=== PATIENT | female | born 1950 | race Caucasian/White ===

== ENCOUNTER 2020-06-28 01:10 | Outpatient (CLI) | payer OTHER, SELFPAY ==
[2020-06-28 17:58] LABS: SARS-CoV-2 RNA PCR Negative
== END 2020-06-28 01:11 | disposition home or self-care (01) ==
LOC: ANHCOVIDDT 01:10
PROVIDERS: PCP Nurse Practitioner Family; Visit Provider Obstetrics & Gynecology
DX: Z01.812 Encounter for preprocedural laboratory examination (principal); Z20.828 Contact with and (suspected) exposure to other viral communicable diseases
CPT/HCPCS: 87635; C9803; U0003

== ENCOUNTER 2020-06-28 09:18 | Outpatient (CLI) | payer OTHER, SELFPAY ==
--- NOTE | 2020-06-28 09:58 | ECG_ITS ---
Measurements Intervals [place] Rate: 62 P: 32 UT: 176 QRS: 0 QRSD: 102 T: 82 QT: 406 QTc: 413 Interpretive Statements SINUS RHYTHM INFERIOR INFARCT, AGE INDETERMINATE BORDERLINE T WAVE ABNORMALITY- HIGH LATERAL LEADS ABNORMAL ECG Electronically Signed On 06-28-2020 15:05:54 CDT by Pawan Shanks D.O.
== END 2020-06-28 09:19 | disposition home or self-care (01) ==
LOC: ANHNEURO 09:20 → ANHCARD 10:16 → ANHNEURO 10:17
PROVIDERS: PCP Nurse Practitioner Family; Visit Provider Anesthesiology
DX: I10 Essential (primary) hypertension (principal); M54.5 Low back pain; R94.31 Abnormal electrocardiogram [ECG] [EKG]
CPT/HCPCS: 93005

== ENCOUNTER 2020-07-01 00:24 | Day surgery (SDC) | payer OTHER, SELFPAY ==
[2020-06-24 15:51] VITALS: BMI 32.7
--- NOTE | 2020-06-29 10:20 | WPDANESEPP ---
Anes - Eval Pre Procedure Procedure: Operation Date: 07/01/20 07:30 Proposed Procedures p Hysteroscopy With Endometrial Biopsy - Mihir Molina MD Date/Time: 06/29/20 10:20 Pre Op Diagnosis: Corpus Uteri Polyp Patient Data Age: 70 Gender: F Height: 1.73 m Weight: 97.7 kg Allergies Allergy/AdvReac Type Severity Reaction Status Date / Time Sulfa (Sulfonamide Allergy Unknown Anaphylaxis Verified 06/24/20 15:36 Antibiotics) bee stings Allergy Mild Anaphylaxis Uncoded 06/24/20 15:36 MILK Allergy Mild GI UPSET Uncoded 06/24/20 15:36 TAPE Allergy Mild RASH/SKIN Uncoded 06/24/20 15:36 TURNS RED Home Medications Medication Instructions Recorded Confirmed Type cholecalciferol (vitamin D3) 250 mcg PO WEEKLY 06/24/20 06/24/20 History enalapril maleate 10 mg PO DAILY 06/24/20 06/24/20 History Patient hx anesthesia problems: none Family hx anesthesia problems: none PMFSH Past Medical History Medical History Arthritis Asthma Hiatal hernia HTN (hypertension) Surgical History Surgical History Hx laparoscopic cholecystectomy Social History Social History Smoking status: Former smoker Additional smoking assessment comments: <1PK/DAY/10YRS QUIT >35+ YRS Alcohol intake: former Substance use: never Spiritual care concerns: No Exam Day of Procedure 06/29/20 10:20
[2020-07-01] MEDS: ACETAMINOPHEN 500 MG TABLET 1000 MG PO (06:58)
[2020-07-01] MEDS: LACTATED RINGERS 1,000 ML 30 ML IV CONT (06:59)
[2020-07-01 07:03] VITALS: BP 150/82; PULSE 72; RESP 20; TEMP 37.3; O2SAT 98
--- NOTE | 2020-07-01 07:13 | P.PNAN_ITS ---
Anes - Initial Pre Proc Eval Procedure: Operation Date: 07/01/20 07:30 Proposed Procedures p Hysteroscopy With Endometrial Biopsy - Mihir Molina MD Date/Time: 07/01/20 07:13 Surgeon: Mihir Molina MD Pre Op Diagnosis: Corpus Uteri Polyp Patient Data Age: 70 Gender: F Height: 5 ft 8 in Weight: 97.7 kg Allergies Allergy/AdvReac Type Severity Reaction Status Date / Time Sulfa (Sulfonamide Allergy Unknown Anaphylaxis Verified 06/24/20 15:36 Antibiotics) bee stings Allergy Mild Anaphylaxis Uncoded 06/24/20 15:36 MILK Allergy Mild GI UPSET Uncoded 06/24/20 15:36 TAPE Allergy Mild RASH/SKIN Uncoded 06/24/20 15:36 TURNS RED Home Medications Medication Instructions Recorded Confirmed Type cholecalciferol (vitamin D3) 250 mcg PO WEEKLY 06/24/20 06/24/20 History enalapril maleate 10 mg PO DAILY 06/24/20 06/24/20 History Patient hx anesthesia problems: none Family hx anesthesia problems: none [facility] Past Medical History Medical History Arthritis Asthma Hiatal hernia HTN (hypertension) Surgical History Surgical History (Updated 07/01/20 @ 07:17 by Damien Keyes MD) H/O arthroscopic knee surgery Hx laparoscopic cholecystectomy Social History Social History Smoking status: Former smoker Additional smoking assessment comments: <1PK/DAY/10YRS QUIT >35+ YRS Alcohol intake: former Substance use: never Living arrangements: with family Spiritual care concerns: No Anes - Eval Final PreProcedure Day of Procedure 07/01/20 07:13 Patient weight: obese Heart: regular rate and rhythm Lungs: clear to auscultation Airway: Mallampati scale class II Neurological: alert and oriented Last oral intake: >/= 8 hours ASA classification: III Emergent: no Anesthetic plan: proceed Anesthesia type and monitoring: general GIVS and standard monitoring Informed Consent: The patient's anesthetic plan and its attendant risks and benefits were discussed with the patient/family/POA. Questions were solicited and answers provided to the satisfaction of the patient/family/POA.
[2020-07-01] MEDS: KETOROLAC 15 MG/ML VIAL (*BKC) IV PUSH (07:14)
--- NOTE | 2020-07-01 07:17 | PM.IMHP ---
H&P: HPI History of Present Illness Date/Time: 07/01/20 07:17 Chief complaint: Corpus Uteri Polyp Narrative: Jackie Moralez is a 70 year old female presents for surgical care. She has an endometrial polyp and postmenopausal bleeding. We agreed to perform hysteroscopy with polypectomy. She understands the procedure as risk. She understands that injuries may occur. She understands that surgical injuries can result in more surgery, severe illness, hospitalization. She understands there is risk of hemorrhage and infection. Review of Systems Constitutional: Constitutional: Reports no additional constitutional complaints, Denies fatigue, Denies headache(s), Denies lethargy and Denies weakness Eyes: Eyes: Reports no additional eye complaints, Denies blurry vision and Denies photophobia ENT: Reports as per HPI, Denies headache(s) and Denies neck pain Cardiovascular: Cardiovascular: Denies chest pain, Denies diaphoresis, Denies leg edema, Denies palpitations and Denies dyspnea Respiratory: Respiratory: Denies hemoptysis, Denies dyspnea and Denies wheezing Gastrointestinal: Gastrointestinal: Denies abdominal pain, Denies melena, Denies bloating, Denies hematochezia, Denies nausea and Denies vomiting Genitourinary: Genitourinary: Reports no additional female genitourinary complaints Musculoskeletal: Musculoskeletal: Denies joint swelling, Denies neck pain, Denies numbness and Denies stiffness Neurologic: Denies Abnormal speech present, Denies confusion, Denies headache(s), Denies numbness and Denies weakness Psychiatric: Psychiatric: Denies anxiety, Denies confusion, Denies depression, Denies homicidal ideation and Denies suicidal ideation Endocrine: Endocrine: Denies fatigue and Denies palpitations Allergic/Immunologic: Allergic/Immunologic: Denies wheezing [facility] Social History Social History Smoking status: Former smoker Additional smoking assessment comments: <1PK/DAY/10YRS QUIT >35+ YRS Alcohol intake: former Substance use: never Living arrangements: with family Spiritual care concerns: No Meds Home Medications and Allergies Home Medications Medication Instructions Recorded Confirmed Type cholecalciferol (vitamin D3) 250 mcg PO WEEKLY 06/24/20 06/24/20 History enalapril maleate 10 mg PO DAILY 06/24/20 06/24/20 History Allergies Allergy/AdvReac Type Severity Reaction Status Date / Time Sulfa (Sulfonamide Allergy Unknown Anaphylaxis Verified 06/24/20 15:36 Antibiotics) bee stings Allergy Mild Anaphylaxis Uncoded 06/24/20 15:36 MILK Allergy Mild GI UPSET Uncoded 06/24/20 15:36 TAPE Allergy Mild RASH/SKIN Uncoded 06/24/20 15:36 TURNS RED Exam Const: General: healthy appearing, comfortable and no acute distress; No confusion Orientation/consciousness: No confusion Eyes: Direct Ophthalmoscopy: No photophobia Resp: Auscultation: clear to auscultation bilaterally, no rales, no rhonchi and no wheezes Cardio: Rate: regular rate Heart sounds: no click, no murmurs and no rubs GI: Inspection: non-distended GI Palp: No abdominal tenderness Auscultation: normal bowel sounds Neuro: General: No confusion Speech: No Abnormal speech present Extrem: General: normal to inspection, no pedal edema and no calf tenderness Assessment and Plan Assessment and plan (1) Postmenopausal bleeding: Code(s): N95.0 - Postmenopausal bleeding Status: Acute (2) Endometrial polyp: Code(s): N84.0 - Polyp of corpus uteri Status: Acute Assessment and Plan: this patient is a 70-year-old female presents for surgical care. She has an endometrial polyp and postmenopausal bleeding. We are going to perform hysteroscopy with polypectomy. She understands the risks, benefits, and alternatives. She has completed the informed consent process and is ready to proceed.
--- NOTE | 2020-07-01 07:19 | WPDHPUPDATE1 ---
History and Physical Update Update Date/Time: 07/01/20 07:19 History and Physical has been reviewed, including an updated exam of the patient. There are NO changes in the patient's condition. Risks, benefits, and alternatives have been discussed and questions answered. Patient agrees to proceed with procedure.
--- NOTE | 2020-07-01 08:05 | SUR.OPER ---
850ml in, 700 ml out. aware
[2020-07-01 08:10] VITALS: BP 105/53; PULSE 79; RESP 18; O2SAT 94
--- NOTE | 2020-07-01 08:22 | PM.PROC ---
Procedure Note - Detailed Date of procedure: 07/01/20 Pre-op diagnosis: Corpus Uteri Polyp Abnormal uterine bleeding Post-op diagnosis: same Procedure performed: Hysteroscopy D&C Description of procedure: The patient was taken the operating room. She was prepped and draped in the dorsal lithotomy position after induction of mac anesthesia. A speculum was placed in the vagina. The cervix grasped with a tenaculum. Dissection of the cervical os was required. The cervix was injected at 3 and 9:00 a.m. with 1% lidocaine. There was a stenotic external cervical os. Sharp and blunt dissection were used to open the tract and eventually find the endocervical canal. Cervix was dilated up to 1 cm. The hysteroscope was inserted the intrauterine cavity and the above findings were noted. A medium-size curette was then used to curettage all surfaces within the endometrial cavity. The endometrial curettings were collected on a Telfa. There were submitted to the pathology department. Hysteroscope was reinserted the intrauterine cavity to re-examine the endometrial surfaces. The hysteroscope was withdrawn. The tenaculum was removed. The speculum was removed. The patient tolerated the procedure well. She was taken recovery room stable condition. Sponge lap needle counts were correct x2. Anesthesia: MAC Surgeon: Mihir Molina MD Estimated blood loss (mL): 75 Drains: No Packing: No Pathology: yes Complications: No immediate complications Condition: stable Disposition: PACU Findings: There was some thin scaring of the endometrium. There was normal appearing vulva and vagina. There was a stenotic cervix.
[2020-07-01 08:40] VITALS: BP 115/68; PULSE 60; RESP 20; O2SAT 94
[2020-07-01] MEDS: oxyCODONE HCL (*CRX) 5 MG TAB IR PO (09:01)
[2020-07-01 09:10] VITALS: BP 115/70; PULSE 62; RESP 20
[2020-07-01 09:30] VITALS: BP 125/70; PULSE 55; RESP 20
== END 2020-07-01 09:34 | disposition home or self-care (01) ==
PROVIDERS: PCP Nurse Practitioner Family; Visit Provider Obstetrics & Gynecology
PROC: 0U5B8ZZ Destruction of Endometrium, Via Natural or Artificial Opening Endoscopic (ICD-10-PCS; CPT 58563; principal; 2020-07-01 07:30)
DX: N84.0 Polyp of corpus uteri (principal); N95.0 Postmenopausal bleeding; I10 Essential (primary) hypertension; Z87.891 Personal history of nicotine dependence
CPT/HCPCS: 58558; 88305; A9270; J1100; J1885; J2250; J2405; J2704; J3010; J7120

== ENCOUNTER 2021-04-25 12:45 | Emergency (ER) | payer OTHER, SELFPAY ==
--- NOTE | ~2021-04-25 | XR_ITS ---
EXAMINATION: XR chest 2V DATE: 04/25/2021 13:01 INDICATION: COVID positive presenting with cough TECHNIQUE: PA and lateral views of the chest were obtained. COMPARISON: Chest radiograph dated 12/15/2004 FINDINGS: The lungs remain clear with no focal airspace opacities, pulmonary edema, pleural effusion or pneumot horax. Heart size is normal. Air-fluid level within a small to moderate-sized hiatal hernia. Mild tho racic spondylosis. IMPRESSION: 1. No acute cardiopulmonary disease. 2. Small to moderate-sized hiatal hernia. Reviewed, dictated and finalized at location A.
[2021-04-25 12:48] VITALS: BP 145/86; PULSE 86; RESP 20; TEMP 36.7; O2SAT 97
[2021-04-25 15:16] VITALS: BP 119/67; PULSE 76; RESP 14; O2SAT 96
[2021-04-25 15:46] LABS: Basophils Percent Auto 0.6 % (0.2-1.2); Eosinophils Percent Auto 0.3 % (0-4.4); Hematocrit 43.4 % (37.0-47.0); Hemoglobin 14.1 g/dL (12.0-15.0); Immature Granulocyte Absolute 0.01 K/mm3 (0.00-0.031); Immature Granulocyte Percent A 0.3 % (0-0.5); Lymphocytes Absolute Auto 0.93 K/mm3 (0.9-3.2); Mean Corpuscular HGB Conc 32.5 g/dl (32-36); Mean Corpuscular Hemoglobin 28.6 pg (26-34); Mean Platelet Volume 8.5 fl (7.4-10.4); Monocytes Absolute Auto 0.3 K/mm3 (0.1-0.6); Monocytes Percent Auto 8.4 % (2.6-8.5); Neutrophils Absolute Auto 1.9 K/mm3 (1.3-6.7); Neutrophils Percent Auto 60.4 % (45.5-73.1); Platelet Count Result 151 k/mm3 (150-375); Red Blood Count 4.93 M/mm3 (4.2-5.4); Red Cell Distribution Width 13.5 % (11.5-14.5); White Blood Count 3.1 K/mm3 (4.5-10.0)
[2021-04-25 16:14] LABS: Alanine Aminotransferase 53 U/L (4-35); Albumin Level 3.9 g/dL (3.5-5.1); Alkaline Phosphatase 57 U/L (38-126); Anion Gap 10 mmol/L (8-16); Aspartate Amino Transferase 53 U/L (14-36); Bilirubin,Total 0.2 mg/dL (0.2-1.3); Blood Urea Nitrogen 16 mg/dL (7-17); Calcium 8.8 mg/dL (8.4-10.2); Carbon Dioxide 24 mmol/L (22-30); Chloride 103 mmol/L (98-107); Estimated CRCL calculation 81 ml/min; Estimated Glomerular Filt Rate > 60; Glucose 96 mg/dL (65-110); Potassium 3.4 mmol/L (3.4-5.0); Sodium 137 mmol/L (137-145)
[2021-04-25 16:34] VITALS: BP 144/86; PULSE 93; RESP 22; TEMP 38.3; O2SAT 100
--- NOTE | 2021-04-25 16:40 | ED.GENADULT ---
HPI - General Adult General Chief complaint: Upper Respiratory Infection Stated complaint: SOB/covid positive Time Seen by Provider: 04/25/21 14:45 History of Present Illness HPI narrative: Patient is a 71-year-old female who presents to the ER with shortness of breath and cough. Patient began to feel symptoms of Covid on 04/20/2021. She received a positive Covid swab on 04/21. She has been using her albuterol inhaler every 3-4 hours taking 2 puffs. She reports she still has persistent cough that causes pain in her chest when she is coughing. She reports fevers and chills and fatigue. Patient contracted Covid while at a [employer] camp where 800 people had gathered in about half of them have since tested positive. Patient did not receive the Covid vaccination. Patient has tried [id number]-egq-[id number] medications to help with sinus congestion related to her symptoms. Related Data Home Medications Medication Instructions Recorded Confirmed cholecalciferol (vitamin D3) 250 mcg PO WEEKLY 06/24/20 07/01/20 enalapril maleate 10 mg PO DAILY 06/24/20 07/01/20 vitamin W13-tilpx acid 04/25/21 Allergies Allergy/AdvReac Type Severity Reaction Status Date / Time Sulfa (Sulfonamide Allergy Unknown Anaphylaxis Verified 04/25/21 16:22 Antibiotics) bee stings Allergy Mild Anaphylaxis Uncoded 04/25/21 16:22 MILK Allergy Mild GI UPSET Uncoded 04/25/21 16:22 TAPE Allergy Mild RASH/SKIN Uncoded 04/25/21 16:22 TURNS RED Review of Systems Review of Systems: All systems reviewed & are unremarkable except as noted in HPI and below Constitutional: Constitutional: Reports chills, Reports fever(s) and Reports weakness ENT: Reports nasal congestion and Denies sore throat Cardiovascular: Cardiovascular: Denies chest pain and Denies radiating jaw, neck or arm pain Respiratory: Respiratory: Reports cough, Reports dyspnea and Reports wheezing Gastrointestinal: Gastrointestinal: Denies abdominal pain, Denies nausea and Denies vomiting [facility] Past Medical History Medical History (Updated 04/25/21 @ 16:47 by Samir Vinecnt MD) Arthritis Asthma Hiatal hernia HTN (hypertension) Surgical History Surgical History (Updated 07/01/20 @ 07:17 by Damien Keyes MD) H/O arthroscopic knee surgery Hx laparoscopic cholecystectomy Social History Social History Smoking status: Former smoker Additional smoking assessment comments: <1PK/DAY/10YRS QUIT >35+ YRS Alcohol intake: former Substance use: never Gender identity (if verbalized by the patient): Female Spiritual care concerns: No Exam Narrative: GENERAL: Well-appearing, obese, and in no acute distress. HEAD: Normocephalic, atraumatic. CHEST: Clear to auscultation. No respiratory distress. Frequent coughing. HEART: Regular rate and rhythm. Normal peripheral pulses. ABDOMEN: Soft, nontender, nondistended. EXTREMITIES: Normal range of motion. No edema. SKIN: Warm, dry, no rash. NEURO: Alert and oriented x3. PSYCH: Normal mood and affect. Course Course Emergency Course: No evidence of Covid pneumonia. No hypoxia. Continue supportive therapy at home. Vital Signs Vital signs: Vital Signs Temperature 98.1 F 04/25/21 12:48 Pulse Rate 86 04/25/21 12:48 Respiratory Rate 20 04/25/21 12:48 Blood Pressure 145/86 H 04/25/21 12:48 Pulse Oximetry 97 04/25/21 12:48 Temperature 101.0 F H 04/25/21 16:34 Pulse Rate 93 04/25/21 16:34 Respiratory Rate 22 H 04/25/21 16:34 Blood Pressure 144/86 H 04/25/21 16:34 Pulse Oximetry 100 04/25/21 16:34 Medical Decision Making Vital Signs Vital Signs: Vital Signs Temperature 98.1 F 04/25/21 12:48 Pulse Rate 86 04/25/21 12:48 Respiratory Rate 20 04/25/21 12:48 Blood Pressure 145/86 H 04/25/21 12:48 Pulse Oximetry 97 04/25/21 12:48 Temperature 101.0 F H 04/25/21 16:34 Pulse Rate 93 04/25/21 16:34 Respiratory Rate 22 H
[2021-04-25] MEDS: ACETAMINOPHEN 500 MG TABLET 1000 MG PO (17:18)
[2021-04-25 17:21] VITALS: BP 163/90; PULSE 85; RESP 18; O2SAT 92
[2021-04-25 17:26] VITALS: BP 163/90; PULSE 94; RESP 18; O2SAT 93
== END 2021-04-25 17:31 | disposition home or self-care (01) ==
PROVIDERS: Emergency Provider Emergency Medicine; PCP Nurse Practitioner Family
DX: U07.1 COVID-19 (principal); J45.909 Unspecified asthma, uncomplicated; I10 Essential (primary) hypertension; M19.90 Unspecified osteoarthritis, unspecified site; Z87.891 Personal history of nicotine dependence; K44.9 Diaphragmatic hernia without obstruction or gangrene
CPT/HCPCS: 36415; 71046; 80048; 80076; 85025; 99283; A9270

== ENCOUNTER 2021-04-29 09:40 | Inpatient (IN) | payer OTHER, SELFPAY ==
[2021-04-29] VITALS (13 sets, daily range): BP systolic 132–149; BP diastolic 72–111; PULSE 80–88; RESP 18–24; TEMP 36.6–37.8; O2SAT 84–96
--- NOTE | ~2021-04-29 | XR_ITS ---
EXAMINATION: XR chest PICC line INDICATION: PICC insertion TECHNIQUE: Portable AP chest at 1236 hours COMPARISON: 0436 hours FINDINGS: A right upper extremity PICC has been inserted which ends with its tip in the distal superi or vena cava. Diffuse opacities persist in all lung zones without significant change. There is no ple ural effusion or pneumothorax. The cardiomediastinal silhouette is stable. IMPRESSION: 1. Right upper extremity PICC insertion ending in the distal superior vena cava. 2. Stable diffuse lung disease, consistent with pneumonia and/or pulmonary edema. Reviewed, dictated and finalized at location A. IMPRESSION: 1. Right upper extremity PICC insertion ending in the distal superior vena cava . 2. Stable diffuse lung disease, consistent with pneumonia and/or pulmonary catalina a.
--- NOTE | ~2021-04-29 | XR_ITS ---
XR chest 1V portable DATE: 05/04/2021 05:56 INDICATION: Covid pneumonia. Acute respiratory failure. TECHNIQUE: Portable AP chest on 05/04/2021 at 0534 hours COMPARISON: 05/03/2021 portable AP chest at 0513 hours FINDINGS: There are extensive asymmetric patchy bilateral pulmonary infiltrates, increased in the rig ht lower lung since 05/03/2021 but otherwise relatively stable. Heart size appears within normal range. No pleural effusion is noted. No pneumothorax. Right upper extremity PIC catheter tip overlies the superior vena cava. Diffuse osteopenia. IMPRESSION: Persistent extensive bilateral patchy pulmonary infiltrates, increased in the right lower lung since 05/03/2021 Reviewed, dictated and finalized at location A. IMPRESSION: Persistent extensive bilateral patchy pulmonary infiltrates, increa sed in the right lower lung since 05/03/2021
--- NOTE | ~2021-04-29 | XR_ITS ---
XR chest ET placement DATE: 05/06/2021 04:32 INDICATION: ET tube placement TECHNIQUE: Portable AP chest on at 0419 hours COMPARISON: 05/05/2021 portable AP chest at 0525 hours FINDINGS: Extensive patchy bilateral pulmonary consolidation is again noted, increased in severity in the right lower lung with loss of much of the right diaphragmatic silhouette since 05/05. Heart size appears normal. No pleural effusion. There is a small right apical pneumothorax and subcutaneous emphysema along the upper right chest and bilateral cervical area. There is pneumomediastinum. ET tube in satisfactory position 4.5 cm above zulma. NG tube is noted passing toward the stomach at the lower margin of the radiograph. Right upper extremity PIC catheter tip overlies the superior vena cava. IMPRESSION: Small right apical pneumothorax, pneumomediastinum and right upper chest and bilateral ce rvical subcutaneous emphysema, new since 05/05/2021 Persistent extensive bilateral patchy consolidating pulmonary infiltrates, increased consolidation in right lower lung ET tube in satisfactory position NG tube passing toward stomach Right upper extremity PIC catheter in superior vena cava Reviewed, dictated and finalized at Location [facility]. Reviewed, dictated and finalized at location A. IMPRESSION: Small right apical pneumothorax, pneumomediastinum and right upper chest and bilateral cervical subcutaneous emphysema, new since 05/05/2021 Persistent extensive bilateral patchy consolidating pulmonary infiltrates, incr eased consolidation in right lower lung ET tube in satisfactory position NG tube passing toward stomach Right upper extremity PIC catheter in superior vena cava
--- NOTE | ~2021-04-29 | XR_ITS ---
EXAMINATION: XR chest 1V portable DATE: 05/06/2021 08:45 INDICATION: Respiratory failure. Shortness of breath. TECHNIQUE: A single frontal view of the chest was obtained. COMPARISON: Chest single view at 4:14 AM, chest single view 05/05/2021 FINDINGS: There is a small right pneumothorax. There are airspace opacities in all right lung zones a nd in left mid and lower lung zones. No pleural effusion. The heart size is normal. Pneumomediastinum is noted. There is soft tissue gas in the neck bilaterally. There is soft tissue gas in the right ch est. The endotracheal tube tip is 6.1 cm above the zulma. The nasogastric tube tip is in the stomach . A right upper extremity peripherally inserted central venous catheter (PICC) is seen with tip in th e superior vena cava. IMPRESSION: 1. Stable small right pneumothorax. 2. Diffuse lung disease with worsening on the right and with mild improvement in left midlung zone, c onsistent with COVID-19 pneumonia. 3. Persistent pneumomediastinum. Worsened soft tissue gas in the neck and right chest. Reviewed, dictated and finalized at location A. IMPRESSION: 1. Stable small right pneumothorax. 2. Diffuse lung disease with worsening on the right and with mild improvement i n left midlung zone, consistent with COVID-19 pneumonia. 3. Persistent pneumomediastinum. Worsened soft tissue gas in the neck and right chest.
--- NOTE | ~2021-04-29 | XR_ITS ---
XR chest 1V portable 05/02/2021 05:59 Indication: CovidPneumonia. Acute respiratory failure. Procedure: AP portable chest Comparison: Comparison to multiple prior studies sequentially, with oldest reviewed study dated 04/25. Findings: Patchy bilateral airspace disease, consistent with pneumonia. No significant effusion. No p neumothorax. No acute osseous abnormality. PICC line tip in the SVC. Impression: 1: Progression of patchy bilateral airspace disease, compatible with pneumonia. Reviewed, dictated and finalized at location A. Impression: 1: Progression of patchy bilateral airspace disease, compatible with pneumonia.
--- NOTE | ~2021-04-29 | XR_ITS ---
XR chest 1V portable 05/03/2021 05:36 Indication: CovidPneumonia. Acute respiratory failure. Procedure: AP portable chest Comparison: Comparison to multiple prior studies sequentially, with oldest reviewed study dated 12/2020. Findings: Heart size normal. PICC line tip in the SVC. Diffuse bilateral airspace disease unchanged f rom 05/02/2021. No pleural effusion. No pneumothorax. No acute osseous abnormality. Impression: 1: Stable diffuse bilateral airspace compatible with pneumonia. Reviewed, dictated and finalized at location A. Impression: 1: Stable diffuse bilateral airspace compatible with pneumonia.
--- NOTE | ~2021-04-29 | XR_ITS ---
XR chest 1V portable DATE: 05/05/2021 05:58 INDICATION: Covid pneumonia. Acute respiratory failure. TECHNIQUE: Portable AP chest on 05/05/2021 at 0525 hours COMPARISON: 05/04/2021 portable AP chest at 0534 hours FINDINGS: There are extensive patchy bilateral pulmonary consolidating infiltrates, not significantly changed since 05/04/2021. Right upper extremity PIC catheter tip overlies the superior vena cava. No pleural effusion or pneumo thorax. IMPRESSION: Extensive bilateral pulmonary infiltrates, relatively stable since 05/04/2021 Reviewed, dictated and finalized at location A.
--- NOTE | ~2021-04-29 | XR_ITS ---
EXAMINATION: XR chest 1V portable DATE: 04/29/2021 10:58 INDICATION: COVID positive. Hypoxia and coughing. TECHNIQUE: frontal view of the chest was obtained. COMPARISON: Chest radiograph dated 04/25/2021 FINDINGS: Increased patchy airspace opacities throughout both lungs most prominent in the mid lung zones. No pl eural effusion or pneumothorax. Cardiomediastinal silhouette is within normal limits for AP technique . Small to moderate-sized hiatal hernia. IMPRESSION: 1. New patchy bilateral airspace opacities concerning for pneumonia with differential including less likely pulmonary edema. Reviewed, dictated and finalized at location A. IMPRESSION: 1. New patchy bilateral airspace opacities concerning for pneumonia with differ ential including less likely pulmonary edema.
--- NOTE | ~2021-04-29 | XR_ITS ---
EXAMINATION: XR chest 1V portable INDICATION: Worsening shortness of breath TECHNIQUE: Portable AP chest at 0436 hours COMPARISON: 04/29/2021 FINDINGS: Diffuse opacities persist in all lung zones with slight worsening in the mid and upper lung zones. There is no pleural effusion or pneumothorax. The cardiomediastinal silhouette is normal. IMPRESSION: 1. Diffuse lung disease with interval worsening, consistent with pneumonia and/or pulmonary edema. Reviewed, dictated and finalized at location A. IMPRESSION: 1. Diffuse lung disease with interval worsening, consistent with pneumonia and/ or pulmonary edema.
--- NOTE | ~2021-04-29 | XR_ITS ---
EXAMINATION: XR chest 1V portable DATE: 05/06/2021 21:50 INDICATION: Respiratory failure. TECHNIQUE: frontal view of the chest was obtained. COMPARISON: Chest radiograph dated 05/06/2021 FINDINGS: Endotracheal tube tip 4.4 cm above the zulma. Nasogastric tube extends into the stomach with distal tip collimated off the study. Right upper extremity peripherally inserted central venous catheter (P ICC) tip at the mid Superior vena cava. Can seen is a small right apical pneumothorax. There is pneumopericardium as well as pneumomediastinu m. Significant increase in subcutaneous emphysema overlying the lateral right chest wall now extendin g into the right upper arm, neck and now bilateral supraclavicular regions. Increased airspace opacit ies in the right mid and lower lung zones and to lesser degree at the right upper lung zone. Hyperexp ansion of the left lung with increased lucency in the left upper lung zone. Subtle opacities in the l eft mid and lower lung zone. No left-sided pneumothorax or pleural effusion. Heart size is normal. Vi sualized bones and soft tissues are unremarkable. IMPRESSION: 1. Stable small right pneumothorax, pneumopericardium and pneumomediastinum with significant increase in extensive subcutaneous emphysema at the right chest, right upper arm lower neck and bilateral sup raclavicular regions. 2. Small right lung volume with increasing consolidation in the right mid to lower lung zones consist ent with worsening COVID pneumonia. 3. Hyperexpanded left lung with no significant change in mild opacities in the left mid and lower cr g zone also consistent with COVID pneumonia. Reviewed, dictated and finalized at location A. IMPRESSION: 1. Stable small right pneumothorax, pneumopericardium and pneumomediastinum wit h significant increase in extensive subcutaneous emphysema at the right chest, right upper arm lower neck and bilateral supraclavicular regions. 2. Small right lung volume with increasing consolidation in the right mid to lo wer lung zones consistent with worsening COVID pneumonia. 3. Hyperexpanded left lung with no significant change in mild opacities in the left mid and lower lung zone also consistent with COVID pneumonia.
--- NOTE | ~2021-04-29 | CT_ITS ---
EXAMINATION: CTA chest PE protocol DATE: 04/29/2021 11:41 INDICATION: Hypoxia. Covid. Elevated d-dimer. TECHNIQUE: Computed tomography angiography (CTA) of the chest was performed with 100 mL Omnipaque-350 intravenous contrast timed to evaluate the pulmonary arteries. Coronal maximum intensity projection 3D-reconstructions were created by the technologist. Automated exposure control and iterative reconst ruction technique were employed. Exam dose: 1847.45 mGy-cm total exam DLP. COMPARISON: 04/2021 portable AP chest FINDINGS: There is moderate opacification of the pulmonary arteries on the second attempt. No pulmona ry embolism is evident. There is mild bilateral hilar and mediastinal likely reactive lymphadenopathy. No thoracic aortic aneurysm or dissection. Mild cardiomegaly. No pericardial effusion. Moderate sized hiatal hernia. There are extensive bilateral pulmonary groundglass infiltrates with peripheral lung field predominan ce, consistent with extensive bilateral pneumonia, likely Covid related. No pleural effusion. No pneu mothorax or pneumomediastinum. Status post cholecystectomy. Included skeletal structures are unremarkable. IMPRESSION: No evidence of pulmonary embolism Extensive bilateral primarily peripheral groundglass infiltrates scattered throughout both lungs, lik andres due to Covid pneumonia Reviewed, dictated and finalized at Location A. Reviewed, dictated and finalized at location B. IMPRESSION: No evidence of pulmonary embolism Extensive bilateral primarily peripheral groundglass infiltrates scattered thro ughout both lungs, likely due to Covid pneumonia
--- NOTE | ~2021-04-29 | US_ITS ---
US abdomen limited DATE: 05/01/2021 14:11 INDICATION: Elevated liver function tests TECHNIQUE: Real-time imaging, Doppler analysis COMPARISON: 07/20/2016 CT abdomen examination FINDINGS: The pancreatic tail is obscured by bowel gas. The pancreatic head, neck and body are unrema rkable. No hepatic space-occupying mass lesion is evident. Normal hepatopedal portal venous flow direction. The gallbladder is surgically absent. The common bile duct measures 4.5 mm, normal. IMPRESSION: Status post cholecystectomy Reviewed, dictated and finalized at Location A. Reviewed, dictated and finalized at location B. IMPRESSION: Status post cholecystectomy
--- NOTE | ~2021-04-29 | XR_ITS ---
EXAMINATION: XR chest 1V portable INDICATION: Hypoxia, increasing oxygen demands TECHNIQUE: Portable AP chest at 0812 hours COMPARISON: 05/06/2021 FINDINGS: The endotracheal tube ends approximately 4.7 cm above the zulma. The nasogastric tube is f ollowed as far as the stomach. Its tip is beyond the inferior margin of the radiograph. A right upper extremity PICC ends with its tip in the midsuperior vena cava. There is widespread subcutaneous emph ysema with decrease in the right lateral chest wall and increased over the left chest wall and suprac lavicular region. There is a minute right apical pneumothorax. Pneumopericardium and pneumomediastinu m are unchanged. There are stable airspace opacities of the right mid and lower lung zones. There are worsening opacities of the left mid and lower lung zones A small right pleural effusion is present. IMPRESSION: 1. Stable airspace opacities of the right mid and lower lung zone and worsening opacities of the left mid and lower lung zones, consistent with pneumonia. 2. Widespread subcutaneous emphysema with improvement in the right lateral chest wall and worsening o kosta the left thorax. 3. Minute right apical pneumothorax, pneumomediastinum, and pneumopericardium, unchanged. Reviewed, dictated and finalized at location B. IMPRESSION: 1. Stable airspace opacities of the right mid and lower lung zone and worsening opacities of the left mid and lower lung zones, consistent with pneumonia. 2. Widespread subcutaneous emphysema with improvement in the right lateral ches t wall and worsening over the left thorax. 3. Minute right apical pneumothorax, pneumomediastinum, and pneumopericardium, unchanged.
--- NOTE | ~2021-04-29 | XR_ITS ---
XR abdomen NG/feed tube insert DATE: 05/06/2021 04:31 INDICATION: NG tube placement TECHNIQUE: Portable AP view of the upper abdomen on 05/06/2021 at 0420 hours COMPARISON: None FINDINGS: NG tube is noted within the upper mid abdomen, the proximal port and distal tip beyond the lower margin of the radiograph at the L4 level. Surgical clips, right upper quadrant, consistent with cholecystectomy. Bilateral pulmonary infiltrates. No pleural effusion or pneumoperitoneum are noted. IMPRESSION: NG tube in stomach, distal tip not included within the examination Reviewed, dictated and finalized at Location A. Reviewed, dictated and finalized at location A.
--- NOTE | 2021-04-29 09:51 | ECG_ITS ---
Measurements Intervals [place] Rate: 91 P: -6 ID: 143 QRS: -26 QRSD: 100 T: 62 QT: 345 QTc: 425 Interpretive Statements SINUS RHYTHM BORDERLINE R WAVE PROGRESSION, ANTERIOR LEADS INFERIOR INFARCT, AGE INDETERMINATE BASELINE ARTIFACT- II, III, AVR, AVL, AVF, V3-V6 ABNORMAL ECG Electronically Signed On 04-29-2021 10:13:22 CDT by Pawan Shanks D.O.
[2021-04-29 10:18] LABS: Basophils Percent Auto 0.2 % (0.2-1.2); Hematocrit 39.2 % (37.0-47.0); Hemoglobin 13.2 g/dL (12.0-15.0); Immature Granulocyte Absolute 0.03 K/mm3 (0.00-0.031); Immature Granulocyte Percent A 0.6 % (0-0.5); Lymphocytes Absolute Auto 0.74 K/mm3 (0.9-3.2); Lymphocytes Percent Auto 14.7 % (18.3-44.2); Mean Corpuscular HGB Conc 33.7 g/dl (32-36); Mean Corpuscular Hemoglobin 28.9 pg (26-34); Mean Corpuscular Volume 85.8 fl (80-100); Mean Platelet Volume 9.2 fl (7.4-10.4); Monocytes Absolute Auto 0.2 K/mm3 (0.1-0.6); Monocytes Percent Auto 3.4 % (2.6-8.5); Neutrophils Absolute Auto 4.1 K/mm3 (1.3-6.7); Neutrophils Percent Auto 81.1 % (45.5-73.1); Platelet Count Result 168 k/mm3 (150-375); Red Blood Count 4.57 M/mm3 (4.2-5.4); Red Cell Distribution Width 13.7 % (11.5-14.5); White Blood Count 5.1 K/mm3 (4.5-10.0)
[2021-04-29 10:29] LABS: INR 0.9; Prothrombin Time 11.9 Seconds (11.1-14.7)
[2021-04-29 10:30] LABS: Partial Thromboplastin Time 40.7 SECONDS (22.3-36.8)
[2021-04-29 10:32] LABS: D Dimer 1.12 ug/mL (<0.48)
--- NOTE | 2021-04-29 10:32 | PC.NURSE ---
called lab and talked to Dede added on a Trop 1 baseline and D dimer. Lab stated that D dimer was already running and it was a duplicate order.
--- NOTE | 2021-04-29 10:34 | ED.SOB ---
HPI - SOB/Dyspnea General Chief Complaint: Shortness of Breath/Dyspnea <Nazanin Curran PA-C - Last Filed: 04/29/21 12:50> Stated Complaint: low pulse ox <CLEO Rizvi Last Filed: 04/29/21 12:50> Time Seen by Provider: 04/29/21 09:46 <CLEO Rizvi Last Filed: 04/29/21 12:50> Source: patient <CLEO Rizvi Last Filed: 04/29/21 12:50> Mode of arrival: ambulatory <CLEO Rizvi Last Filed: 04/29/21 12:50> Limitations: no limitations <CLEO Rizvi Last Filed: 04/29/21 12:50> History of Present Illness HPI Narrative: This is a 71 year old female that presents to the ER for ongoing shortness of breath. Reports she was diagnosed with coronavirus on 04/21. Her symptoms had started a day or two prior to that. Reports fever, cough, nausea, chest pain, shortness of breath and diarrhea. She did not get the COVID vaccine. She has a pulse oximeter at home and it has been running in the 80s-90 over the last couple of days which prompted her to be seen. Denies lower extremity edema. <CLEO Rizvi Last Filed: 04/29/21 12:50> Related Data Home Medications: Home Medications Medication Instructions Recorded Confirmed cholecalciferol (vitamin D3) 250 mcg PO WEEKLY 06/24/20 07/01/20 enalapril maleate 10 mg PO DAILY 06/24/20 07/01/20 vitamin P25-jahvq acid PO 04/25/21 amlodipine PO 04/29/21 beclomethasone dipropionate [Qvar INHALATION 04/29/21 RediHaler] <CLEO Rizvi Last Filed: 04/29/21 12:50> Allergies/Adverse Reactions: Allergies Allergy/AdvReac Type Severity Reaction Status Date / Time Sulfa (Sulfonamide Allergy Unknown Anaphylaxis Verified 04/29/21 09:51 Antibiotics) bee stings Allergy Mild Anaphylaxis Uncoded 04/29/21 09:51 MILK Allergy Mild GI UPSET Uncoded 04/29/21 09:51 TAPE Allergy Mild RASH/SKIN Uncoded 04/29/21 09:51 TURNS RED <Nazanin Curran PA-C - Last Filed: 04/29/21 12:50> Review of Systems Review of Systems: CONSTITUTIONAL: Reports fever ENT: Reports congestion CARDIOVASCULAR: Reports chest pain. Denies edema. RESPIRATORY: Reports cough and dyspnea. GASTROINTESTINAL: Reports nausea, and diarrhea. MUSCULOSKELETAL: Reports myalgia. <Nazanin Curran PA-C - Last Filed: 04/29/21 12:50> All systems reviewed & are unremarkable except as noted in HPI and below <Nazanin Curran PA-C - Last Filed: 04/29/21 12:50> [facility] Past Medical History Medical History: Medical History (Updated 04/29/21 @ 12:50 by Nazanin Curran PA-C) Arthritis Asthma Hiatal hernia HTN (hypertension) <Nazanin Curran PA-C - Last Filed: 04/29/21 12:50> Surgical History Surgical History: Surgical History (Updated 07/01/20 @ 07:17 by Damien Keyes MD) H/O arthroscopic knee surgery Hx laparoscopic cholecystectomy <Nazanin Curran PA-C - Last Filed: 04/29/21 12:50> Social History Social History: Social History Smoking status: Former smoker Additional smoking assessment comments: <1PK/DAY/10YRS QUIT >35+ YRS Alcohol intake: former Substance use: never Gender identity (if verbalized by the patient): Female Spiritual care concerns: No <Nazanin Curran PA-C - Last Filed: 04/29/21 12:50> Exam Narrative: GENERAL: Well-appearing, obese, and in no acute distress. HEAD: Normocephalic, atraumatic. EYES: EOMI. ENT: Nares clear, no rhinorrhea or epistaxis. Mucous membranes moist. Oropharynx without tonsillar hypertrophy exudate or other lesions. Bilateral TMs pearly alonso non-bulging NECK: Supple. No adenopathy or masses. CHEST: No respiratory distress. Rales noted at the lung bases. No wheezes or rhonchi HEART: Regular rate and rhythm. No murmur heard. Normal peripheral pulses. EXTREMITIES: Normal range of motion. No edema. SKIN: Warm, dry, no rash. NEURO: No focal deficits. Alert and oriented x3. PSYCH: Normal
[2021-04-29 10:44] LABS: Alanine Aminotransferase 90 U/L (4-35); Albumin Level 3.7 g/dL (3.5-5.1); Alkaline Phosphatase 45 U/L (38-126); Anion Gap 6 mmol/L (8-16); Aspartate Amino Transferase 127 U/L (14-36); Bilirubin,Total 0.4 mg/dL (0.2-1.3); Blood Urea Nitrogen 13 mg/dL (7-17); Calcium 8.4 mg/dL (8.4-10.2); Carbon Dioxide 29 mmol/L (22-30); Chloride 97 mmol/L (98-107); Estimated CRCL calculation 94 ml/min; Estimated Glomerular Filt Rate > 60; Glucose 119 mg/dL (65-110); Lactate Dehydrogenase 1372 U/L (313-618); Potassium 3.3 mmol/L (3.4-5.0); Sodium 132 mmol/L (137-145)
[2021-04-29 10:51] LABS: CRP 13.5 mg/dL (<1.0)
[2021-04-29 11:10] LABS: Troponin I 0.014 ng/mL (0.000-0.034)
[2021-04-29 11:15] LABS: Alveolar/Arterial O2 Gradient 152.2 mmHg; Base Excess ABG 4.9 mEq/l (+/-2.0); Carboxyhemoglobin 0.2 % THb (0-2.0); Fractional Inspired Oxygen 36 %; HCO3 ABG 27.3 mEq/l (22.0-26.0); Methemoglobin ABG 0.3 %THb (0-1.5); Oxygen Content ABG 17.7 %vol (16.0-22.0); Oxygen Saturation ABG 95.1 % (95.0-100.0); PCO2 ABG 33.2 mmHg (35.0-45.0); PO2 FiO2 Ratio Arterial Blood 1.83 %; Reduced Hemoglobin 6.5 %THb (0-5.0); Total Hemoglobin 13.5 g/dL (12.0-18.0)
[2021-04-29 11:17] LABS: Device NASAL CANNULA; Modified Allen's Test Pass; Site Drawn LEFT RADIAL; pH ABG 7.533 (7.350-7.450)
[2021-04-29 11:19] LABS: Procalcitonin 0.3 ng/mL
--- NOTE | 2021-04-29 11:25 | PC.NURSE ---
Pt to CT.
[2021-04-29] MEDS: DEXAMETHASONE SOD PHOS INJ 4 MG/ML VIAL 6 MG IV PUSH (12:06)
[2021-04-29] MEDS: POTASSIUM CHLORIDE 20 MEQ TABLET 40 MEQ PO (13:43)
[2021-04-29] MEDS: REMDESIVIR 200 MG/NS 250 ML 200 MG/250 ML BAG 250 MG IVPB (13:44)
--- NOTE | 2021-04-29 15:23 | PC.NURSE ---
This patient, Jackie Moralez, was admitted to [facility] Surg Room 301-01 on 04/29/21 @ 1520. Patient/family oriented to hospital policies and general routines including ID bracelet, bed and alarms, visiting hours, pain management, procedures, bathroom and other care routines, personal items, smoking policy, room service/diet, and visiting hours. Information on how to activate the Rapid Response Team has been discussed. Patient/Family are encouraged to report perceived risks to care and to ask questions if they do not understand what they are told or what they should do.
--- NOTE | 2021-04-29 18:28 | PM.IMHP ---
H&P: HPI History of Present Illness Date/Time: 04/29/21 18:28 Chief Complaint: Shortness of breath, COVID positive Narrative: 71-year-old female with past medical history of hypertension asthma, and former tobacco use who presented to the ER for low oxygen saturations. The patient reports she was tested positive for COVID on 04/21/2021. She has been monitoring her home pulse ox at home and she has been having oxygen saturations ranging between 82 and 88% for the last few days. She does not usually use oxygen at home. She was placed on 4 L nasal cannula in the ER which improved her oxygen saturations to between 92 and 94%. She reports that she initially began having symptoms of COVID on 04/21/2021. She was exposed to COVID during a [employer]. She initially began having body aches and fatigue as well as a dry cough. She has also had some mild nausea but no vomiting. She has had some soft mushy stools but no juarez diarrhea. She denies any loss of sense of taste or smell. She has been having a mild headache. She has been taking her home inhalers and Tessalon Perles without relief in her symptoms. She does report chest pain associated with cough. She was having a fever as high as 103.2. Her temperature on arrival to the ER was 100.1. She has taken [id number]-[id number] antipyretics for fever. She had planned to get her COVID vaccine soon but got ill prior to receiving vaccine. Review of Systems Review of Systems: 12 systems were reviewed with pertinent positives and negatives per HPI. Except as documented in the HPI, all other systems were reviewed and are negative. [facility] Past Medical History Medical History (Updated 04/30/21 @ 00:23 by Noemi Huddleston DO) Arthritis Asthma Essential hypertension Hiatal hernia Kidney stones Distant history kidney stones that she passed on her own Psoriasis Shingles Surgical History Surgical History (Updated 04/30/21 @ 00:16 by Noemi Huddleston DO) H/O medial meniscus repair of right knee History of carpal tunnel release Right History of repair of right rotator cuff History of tubal ligation Hx laparoscopic cholecystectomy Family History Family History Father Kidney disease Hypertension Aortic aneurysm Sibling HIV disease Mother Glioblastoma multiforme of brain Social History Social History (Updated 04/30/21 @ 00:19 by Noemi Huddleston DO) Social History: She lives in [place] with her . She has 8 children. She is a medical affairs specialist. She does not drink alcohol. Code status: Full code Surrogate decision maker: Smoking packs per day: 1 Smoking cigarettes per day: 20.0 Years smoked: 23 Smoking pack-years: 23.00 Smoking status: Former smoker Tobacco type: cigarettes Alcohol intake: never Substance use: never Substance use type: does not use Gender identity (if verbalized by the patient): Female Spiritual care concerns: No Meds Home Medications and Allergies Home Medications Medication Instructions Recorded Confirmed Type cholecalciferol (vitamin D3) 250 mcg PO WEEKLY 06/24/20 04/29/21 History enalapril maleate 10 mg PO DAILY 06/24/20 04/29/21 History benzonatate [Tessalon Perles] 100 mg PO TID PRN #20 cap 04/25/21 04/29/21 Rx vitamin T55-bydcd acid 1 tablet PO DAILY 04/25/21 04/29/21 History amlodipine 5 mg PO DAILY 04/29/21 04/29/21 History beclomethasone dipropionate [Qvar 2 inh INHALATION BID PRN 04/29/21 04/29/21 History RediHaler] Allergies Allergy/AdvReac Type Severity Reaction Status Date / Time adhesive tape Allergy Mild Rash/Skin Verified 04/29/21 18:38 turns red Sulfa (Sulfonamide Allergy Unknown Anaphylaxis Verified 04/29/21 18:29 Antibiotics) bee stings Allergy Mild Anaphylaxis Uncoded 04/29/21 09:51 MILK Allergy Mild GI UPSET Uncoded 04/29/21 09:51 Vital Signs Vital Signs - 24 hr 04/29/21 09
[2021-04-29] MEDS: ALBUTEROL SULFATE (*SP) INHALER 4 PUFF INHALATION (21:50)
[2021-04-30] VITALS (14 sets, daily range): BP systolic 124–148; BP diastolic 64–78; PULSE 65–96; RESP 18–22; TEMP 36.2–37.5; O2SAT 88–92
--- NOTE | 2021-04-30 | ECHO_ITS ---
Patient Info Name: Jackie Moralez Age: 71 years : 1950 Gender: Female Ht: 68 in Wt: 225 lbs BSA: 2.25 m2 HR: 84 bpm BP: 131 / 70 mmHg Technical Quality: Fair Exam Date: 04/30/2021 8:26 AM Exam Location: [facility] Pulmonary Exam Room: 301 Patient Status: Inpatient Admit Date: 04/29/2021 Staff Ordering Physician: Noemi Huddleston DO Load Tester: ALY Attending Provider: Kristel Ricardo MD Referring Physician: Flaquito HIGHTOWER; Exam Type: CA echo doppler color flow Study Info Indications - COVID MURMUR Complete two-dimensional, color flow and Doppler transthoracic echocardiogram is performed. Summary 1. Complete two-dimensional, color flow and Doppler transthoracic echocardiogram is performed. 2. Left ventricular systolic function is hyperdynamic, estimated at >70%. 3. The left ventricular diastolic function is grade I diastolic dysfunction. 4. There is mild tricuspid valve regurgitation. 5. No pulmonary hypertension, estimated pulmonary arterial systolic pressure is 12 mmHg. Left Ventricle Left ventricular chamber dimension is normal. Left ventricular systolic function is hyperdynamic, estimated at >70%. There is no increased left ventricular wall thickness. Left ventricular septal wall motion is normal. The left ventricular diastolic function is grade I diastolic dysfunction. Right Ventricle Right ventricular chamber dimension is normal. Right ventricular systolic function is normal. Left Atria Left atrial chamber dimension is normal. Right Atria Right atrial chamber dimension is normal. Atrial Septum Intact interatrial septum visualized by color flow imaging. Aortic Valve The aortic valve is trileaflet. There is no aortic valve sclerosis. There is no aortic valve stenosis. There is no aortic valve regurgitation. Pulmonic Valve The pulmonic valve is normal. There is no pulmonic valve stenosis. There is no pulmonic regurgitation. Mitral Valve The mitral valve has normal leaflets. There is no mitral valve stenosis. There is no mitral valve regurgitation. Tricuspid Valve The tricuspid valve leaflets are normal. There is mild tricuspid valve stenosis. There is mild tricuspid valve regurgitation. No pulmonary hypertension, estimated pulmonary arterial systolic pressure is 12 mmHg. Pericardium/Pleural The pericardium appears normal. There is no pericardial effusion. Inferior Vena Cava Normal inferior vena cava with >50% collapse upon inspiration consistent with normal right atrial pressure, 5 mmHg. Aorta The aortic root size at the sinus of Valsalva is normal. The prox ascending aorta size is normal. Left Ventricular Outflow Tract Name Value Normal LVOT 2D LVOT Diameter 2.0 cm LVOT Doppler LVOT Peak Gradient 9 mmHg LVOT Mean Gradient 5 mmHg LVOT VTI 31 cm LVOT VTI/AV VTI Ratio 1.1 LVOT Stroke Volume 100 ml LVOT CO 19.4 l/min LVOT CI
[2021-04-30] MEDS: ALBUTEROL SULFATE (*SP) INHALER 4 PUFF INHALATION ×4 (02:12→19:59)
[2021-04-30] MEDS: BENZONATATE 100 MG CAPSULE PO ×2 (03:46→21:16)
[2021-04-30 07:02] LABS: Hematocrit 42.5 % (37.0-47.0); Hemoglobin 13.2 g/dL (12.0-15.0); Mean Corpuscular HGB Conc 31.1 g/dl (32-36); Mean Corpuscular Hemoglobin 29.2 pg (26-34); Mean Platelet Volume 9.4 fl (7.4-10.4); Platelet Count Result 185 k/mm3 (150-375); Red Blood Count 4.52 M/mm3 (4.2-5.4); Red Cell Distribution Width 14.1 % (11.5-14.5); White Blood Count 4.7 K/mm3 (4.5-10.0)
[2021-04-30 07:31] LABS: INR 0.9; Prothrombin Time 12.3 Seconds (11.1-14.7)
[2021-04-30 07:34] LABS: Alanine Aminotransferase 100 U/L (4-35); Albumin Level 3.5 g/dL (3.5-5.1); Alkaline Phosphatase 44 U/L (38-126); Anion Gap 9 mmol/L (8-16); Aspartate Amino Transferase 139 U/L (14-36); Bilirubin,Total 0.3 mg/dL (0.2-1.3); Blood Urea Nitrogen 19 mg/dL (7-17); Calcium 8.6 mg/dL (8.4-10.2); Carbon Dioxide 23 mmol/L (22-30); Chloride 101 mmol/L (98-107); Estimated CRCL calculation 94 ml/min; Estimated Glomerular Filt Rate > 60; Glucose 128 mg/dL (65-110); Potassium 3.4 mmol/L (3.4-5.0); Sodium 133 mmol/L (137-145)
[2021-04-30 07:35] LABS: CRP 15.7 mg/dL (<1.0)
[2021-04-30] MEDS: ENALAPRIL MALEATE 10 MG TABLET PO (09:00)
[2021-04-30] MEDS: ENOXAPARIN 40 MG/0.4 ML SYRINGE SUB-Q ×2 (09:00→21:16)
[2021-04-30] MEDS: amLODIPine BESYLATE 5 MG TABLET PO (09:00)
--- NOTE | 2021-04-30 09:58 | PCRCNOTE ---
Window of time for administration has passed. See next scheduled administration.
[2021-04-30] MEDS: REMDESIVIR 100 MG/NS 250 ML 100 MG/250 ML BAG 250 MG IVPB (10:03)
[2021-04-30] MEDS: POTASSIUM CHLORIDE 20 MEQ TABLET PO (10:03)
--- NOTE | 2021-04-30 17:00 | PM.IMPN ---
Progress Note: A&P Assessment and Plan (1) Acute respiratory failure with hypoxia: Code(s): J96.01 - Acute respiratory failure with hypoxia Status: Acute Assessment and Plan: secondary to COVID-19 pneumonia CTA negative for PE maintaining adequate oxygen saturations on 5 L per nasal cannula continue supplemental O2 as needed with goal saturation 90% or above treatment for COVID-19 pneumonia as described below (2) Pneumonia due to COVID-19 virus: Code(s): U07.1 - COVID-19; J12.82 - Pneumonia due to coronavirus disease 2019 Status: Acute Assessment and Plan: Patient tested positive on 04/21/2021. CTA showed extensive peripheral ground-glass infiltrates throughout both lungs related to COVID-19 Continue Remdesivir for up to 5 days. Started on 04/29/21. ALT is elevated but <10x upper limit. Monitor closely Continue dexamethasone for up to 10 days. Supplemental O2 as above Supportive care to include bronchodilators, expectorants, antipyretics, and incentive spirometry Trend acute phase reactants Has not received COVID-19 vaccine (3) Asthma: Code(s): J45.909 - Unspecified asthma, uncomplicated Status: Acute Assessment and Plan: Underlying respiratory illness puts her at higher risk for more severe case of COVID-19. Continue Qvar inhaler Albuterol inhaler and Spiriva added (4) Acute hypokalemia: Code(s): E87.6 - Hypokalemia Status: Acute Assessment and Plan: Improved with supplementation Potassium 3.4 today Additional 20 mEq KCl Monitor BMP (5) Transaminitis: Code(s): R74.01 - Elevation of levels of liver transaminase levels Status: Acute Assessment and Plan: Likely secondary to COVID-19 Monitor closely Hold Remdesivir if worsening (6) Essential hypertension: Code(s): I10 - Essential (primary) hypertension Status: Inactive Assessment and Plan: blood pressure reviewed and has been well controlled today. Last BP 140/70. Continue enalapril and amlodipine Monitor BP trends Subjective Date/time seen: 04/30/21 17:00 Interval history: Date of service: 04/30/2021 Jackie Moralez is a 71 year old female with a history of ashtma and hypertension who is seen in follow up for COVID-19. She endorses dyspnea at rest and with exertion. She is having trouble taking deep breaths and notes chest discomfort with deep inspiration. Denies wheezing. She is coughing frequently, especialy with deep breaths. No sputum production. Feels that she has phlegm but can't get it up. Still has normal sense of smell and taste. Appetite is good. No abominal pain. No diarrhea. Last BM 2 days ago. No nausea, vomiting, fevers, or chills. Had a headache this morning. No body aches. She is able to ambulate independently to the bathroom, but this does cause her to cough quite a bit. Review of Systems Review of Systems: All systems reviewed & are unremarkable except as noted in HPI and below Exam Narrative: Ms. Moralez is a well-nourished, well-appearing 71-year-old female who is sitting in a chair by the bedside. She appears comfortable and is in NARD. Neuro: awake, alert and oriented x4, speech clear, no focal neuro deficits noted HEENMT: normocephalic, atraumatic, EOMI, sclerae anicteric, moist oral mucosa Neck: supple, no lymphadenopathy Respiratory: diminished breath sounds bilaterally without crackles or wheezes, barking cough, nonlabored breathing and able to speak in complete sentences Cardio: regular rate, regular rhythm with S1-S2 Abdomen: nondistended, normoactive bowel sounds, soft, nontender to palpation Extremities: trace pedal edema, no erythema or tenderness to palpation, DP pulses 2+ bilaterally Skin: no rashes or lesions, warm and dry Psych: appropriate mood and affect, judgment and insight intact Objective Data Vital Signs Vital Signs: Vital Signs - 2
[2021-05-01] VITALS (21 sets, daily range): BP systolic 118–161; BP diastolic 55–104; PULSE 57–78; RESP 13–28; TEMP 36.2–37.1; O2SAT 88–97; BMI 26.4
[2021-05-01] MEDS: ALBUTEROL SULFATE (*SP) INHALER 4 PUFF INHALATION ×3 (01:06→20:39)
--- NOTE | 2021-05-01 01:11 | PC.NURSE ---
This patient, Jackie Moralez, was received from [[id number] ] on 05/01/21 at 0100 in ICU 3 for IMU overflow. Patient/family oriented to unit policies and routines
--- NOTE | 2021-05-01 01:11 | PC.NURSE ---
This patient, Jackie Moralez, was transferred to [ ICU] on 05/01/21 at 0055. Personal belongings sent with patient. Report given to [Aime ]. Appropriate documentation sent with patient.
[2021-05-01] MEDS: guaiFENesin 12 HR 600 MG TABCR PO ×2 (03:49→20:06)
[2021-05-01] MEDS: PANTOPRAZOLE SODIUM IV 40 MG VIAL IV PUSH (03:49)
[2021-05-01 04:34] LABS: Hematocrit 39.6 % (37.0-47.0); Hemoglobin 13.2 g/dL (12.0-15.0); Mean Corpuscular HGB Conc 33.3 g/dl (32-36); Mean Corpuscular Hemoglobin 28.8 pg (26-34); Mean Corpuscular Volume 86.3 fl (80-100); Mean Platelet Volume 9.1 fl (7.4-10.4); Platelet Count Result 229 k/mm3 (150-375); Red Blood Count 4.59 M/mm3 (4.2-5.4); Red Cell Distribution Width 13.7 % (11.5-14.5); White Blood Count 5.7 K/mm3 (4.5-10.0)
[2021-05-01 04:46] LABS: INR 0.9; Prothrombin Time 12.4 Seconds (11.1-14.7)
[2021-05-01 04:48] LABS: Alanine Aminotransferase 123 U/L (4-35); Albumin Level 3.5 g/dL (3.5-5.1); Alkaline Phosphatase 50 U/L (38-126); Anion Gap 8 mmol/L (8-16); Aspartate Amino Transferase 135 U/L (14-36); Bilirubin,Total 0.4 mg/dL (0.2-1.3); Blood Urea Nitrogen 19 mg/dL (7-17); CRP 6.8 mg/dL (<1.0); Calcium 8.8 mg/dL (8.4-10.2); Carbon Dioxide 26 mmol/L (22-30); Chloride 101 mmol/L (98-107); Estimated CRCL calculation 111 ml/min; Estimated Glomerular Filt Rate > 60; Glucose 140 mg/dL (65-110); Potassium 3.7 mmol/L (3.4-5.0); Sodium 135 mmol/L (137-145)
[2021-05-01] MEDS: rOPINIRole HCL 1 MG TABLET PO ×2 (05:36→22:10)
[2021-05-01] MEDS: FUROSEMIDE INJ 40 MG/4 ML VIAL IV PUSH (05:38)
[2021-05-01 06:16] LABS: Alveolar/Arterial O2 Gradient 564.6 mmHg; Base Excess ABG 1.1 mEq/l (+/-2.0); Carboxyhemoglobin 0.3 % THb (0-2.0); Fractional Inspired Oxygen 92 %; HCO3 ABG 20.9 mEq/l (22.0-26.0); Methemoglobin ABG 0.3 %THb (0-1.5); Oxygen Content ABG 19.5 %vol (16.0-22.0); Oxygen Saturation ABG 96.3 % (95.0-100.0); Oxyhemoglobin 94.3 % THb (90.0-100.0); PO2 ABG 68.5 mmHg (80.0-100.0); PO2 FiO2 Ratio Arterial Blood 0.74 %; Reduced Hemoglobin 5.1 %THb (0-5.0); Total Hemoglobin 14.7 g/dL (12.0-18.0)
[2021-05-01 06:18] LABS: Device HIGH FLOW NASAL CANN; Modified Allen's Test Pass; PCO2 ABG 22.4 mmHg (35.0-45.0); Site Drawn RIGHT RADIAL; pH ABG 7.587 (7.350-7.450)
--- NOTE | 2021-05-01 07:45 | PC.NURSE ---
updated patient's on patient's current status. all questions answered at this time.
[2021-05-01] MEDS: amLODIPine BESYLATE 5 MG TABLET PO (09:16)
[2021-05-01] MEDS: ENOXAPARIN 40 MG/0.4 ML SYRINGE SUB-Q ×2 (09:16→20:06)
[2021-05-01] MEDS: ENALAPRIL MALEATE 10 MG TABLET PO (09:16)
[2021-05-01] MEDS: BENZONATATE 100 MG CAPSULE PO ×2 (09:17→20:07)
[2021-05-01] MEDS: REMDESIVIR 100 MG/NS 250 ML 100 MG/250 ML BAG 250 MG IVPB (10:13)
--- NOTE | 2021-05-01 10:59 | WPDCNINT ---
Assessment and Plan Assessment and plan (1) Acute respiratory failure with hypoxia: Code(s): J96.01 - Acute respiratory failure with hypoxia Status: Acute Assessment and Plan: Acute hypoxic respiratory failure likely related COVID pneumonia -checks x-ray shows worsening diffuse lung disease consistent with pneumonia no pulmonary edema -, patient remains on high-flow therapy Airvo, 90% FiO2 and 60 L flow -have discussed with patient regarding prone position for as long as she can tolerate, she stated that she is anxious about sleeping on her belly with all the wires and tubes -will add small dose of Xanax p.r.n. -continue bronchodilators (2) Pneumonia due to COVID-19 virus: Code(s): U07.1 - COVID-19; J12.82 - Pneumonia due to coronavirus disease 2019 Status: Acute Assessment and Plan: COVID pneumonia, patient is NOT vaccinated -continue droplet, airborne, contact isolation/precautions -inflammatory markers are elevated -since a chest x-ray is worsening with increased oxygen requirements discussed with patient regarding tocilizumab, she is agreeable, I placed orders in the chart -continue Remdesivir (total of 5 days) and dexamethasone (total of 10 days) (3) Asthma: Code(s): J45.909 - Unspecified asthma, uncomplicated Status: Acute Assessment and Plan: Continue bronchodilators and supplementary oxygen (4) Transaminitis: Code(s): R74.01 - Elevation of levels of liver transaminase levels Status: Acute Assessment and Plan: Elevated LFTs but plateauing 8 total bilirubin is 0.4 -check right upper quadrant ultrasound and hepatitis panel (5) DVT prophylaxis: Code(s): Z29.9 - Encounter for prophylactic measures, unspecified Status: Acute Assessment and Plan: Continue enoxaparin 40 mg SQ q.12 hours Additional Plan Discussed with patient at length and updated with her condition and plan of care. I answered all questions. I did discuss with her regarding tocilizumab which has shown mortality benefit and reduction of progression to mechanical ventilation Code status: Full code Critical care time spent: 49 minutes This dictation may have been done utilizing a voice recognition system. Attempts have been made to correct errors. However, there may be uncorrected grammatical, spelling, and recognition errors present. Due to a high probability of clinically significant, life threatening deterioration, the patient required my highest level of preparedness to intervene emergently and I personally spent this critical care time directly and personally managing the patient. This critical care time included obtaining a history; examining the patient; pulse oximetry; ordering and review of studies; arranging urgent treatment with development of a management plan; evaluation of patient's response to treatment; frequent reassessment; and discussions with other providers. It was exclusive of separately billable procedures and treating other patients and teaching time. Please see Assessment and Plan section and the rest of the note for further information on patient assessment and treatment [employer] Consult Note Consult date: 05/01/21 Time Seen: 07:09 Reason for consult: Acute hypoxic respiratory failure with increased oxygen requirements, COVID pneumonia, hypokalemia, elevated LFTs HPI: Jackie Moralez is a 71 year old female with significant past medical history of asthma, essential hypertension, kidney stones, psoriasis, arthritis presented the ED on 04/29/2021 with complains of shortness of breath and being positive for COVID on 04/21/2021. According the records she has been monitoring her oxygen saturated is at home which had been between 80-88% for a few days prior to admission. Patient also complained of fatigue, body aches along with a dry cough. She had some nausea but no vomiting, no diarrhea. No loss of taste or smell. Patient was initially placed on 4
[2021-05-01] MEDS: LIDOCAINE HCL 1% PF INJ 5 ML VIAL INFILTRATE (11:40)
[2021-05-01] MEDS: CENTRAL LINE FLUSH 10 ML IV PUSH ×2 (13:18→20:07)
[2021-05-01] MEDS: ALPRAZolam (*CRX) 0.125 MG TABLET PO ×2 (13:23→22:10)
[2021-05-01 14:02] LABS: Hepatitis B Surface Antigen Negative (Negative)
[2021-05-01 14:08] LABS: HAV RESULT Negative (Negative); Hepatitis B Core IgM Result Negative (Negative)
[2021-05-01 14:20] LABS: Hepatitis C Virus Antibody Negative (Negative)
--- NOTE | 2021-05-01 17:00 | PM.IMPN ---
Progress Note: A&P Assessment and Plan (1) Acute respiratory failure with hypoxia: Code(s): J96.01 - Acute respiratory failure with hypoxia Status: Acute Assessment and Plan: Acute hypoxic respiratory failure related COVID pneumonia -checks x-ray shows worsening diffuse lung disease consistent with pneumonia -patient moved to ICU -She remains on high-flow therapy Airvo, 90% FiO2 and 60 L flow; wean O2 as toelrated -patient can not toelrate lying prone but able to lie on her side at times; encouraged her to alternate sides. -continue bronchodilators (2) Pneumonia due to COVID-19 virus: Code(s): U07.1 - COVID-19; J12.82 - Pneumonia due to coronavirus disease 2018 Status: Acute Assessment and Plan: COVID pneumonia, patient was NOT vaccinated. -continue droplet, airborne, contact isolation/precautions -inflammatory markers are elevated; continue to follow intermittently -patient was agreeable for tocilizumab and this was given 05/01/21; watch for evidence of 2nd bacterial infection -continue Remdesivir (total of 5 days) and dexamethasone (total of 10 days) (3) Asthma: Code(s): J45.909 - Unspecified asthma, uncomplicated Status: Acute Assessment and Plan: As above. (4) Transaminitis: Code(s): R74.01 - Elevation of levels of liver transaminase levels Status: Acute Assessment and Plan: Elevated AST/ALT. AST trending down now. RUQ normal. Hepatitis panel negative. Follow (5) DVT prophylaxis: Code(s): Z29.9 - Encounter for prophylactic measures, unspecified Status: Acute Assessment and Plan: Lovenox Subjective Date/time seen: 05/01/21 17:00 Interval history: Date of service: 05/01/2021 71 year old female with a history of ashtma and hypertension who is seen in follow up for acute respiratory failure from COVID-19. Patient moved the ICU overnight. There was concern for worsening respiratory distress and may require intubation so patient was made ICU status this. No change in shortness of breath. Cough is better. No nausea, vomiting diarrhea. No anosmia or dysgeusia. She eating okay. She cannot lie prone but does lie her side at times. Exam Narrative: AF 98.4 136/104 68 19 95% HFNC Gen - NARD lying semirecumbent in bed Chest - few scattered rhonchi psteriorly. nml RR. Not too much dyspnes when she rolls to her other side CV - RRR S1/S2; Tele showing no significant dysrhythmias Abd - Soft, NT/ND, Positive BS -Shaw secured draining clear yellow urine. Ext - No pedal edema Neuro - Alert and oriented. Nonfocal exam. Psych - Nml mood and affect Skin - Warm and dry Objective Data Vital Signs Vital Signs: Vital Signs - 24 hr 04/30/21 19:54 04/30/21 19:57 04/30/21 20:00 Temperature 99 F Pulse Rate 74 66 77 Respiratory Rate 20 18 20 Blood Pressure 148/76 H Pulse Oximetry 92 92 04/30/21 21:30 04/30/21 22:50 04/30/21 23:40 Temperature Pulse Rate Respiratory Rate Blood Pressure Pulse Oximetry 90 90 89 L 04/30/21 23:55 05/01/21 00:00 05/01/21 01:08 Temperature 97.8 F 97.9 F Pulse Rate 64 77 Respiratory Rate 20 28 H Blood Pressure 146/75 H 161/85 H Pulse Oximetry 88 L 92 88 L 05/01/21 01:15 05/01/21 01:20 05/01/21 01:45 Temperature Pulse Rate Respiratory Rate Blood Pressure 143/75 H Pulse Oximetry 93 92 05/01/21 02:00 05/01/21 04:00 05/01/21 06:00 Temperature 97.7 F Pulse Rate 76 76 74 Respiratory Rate 19 Blood Pressure 156/89 H Pulse Oximetry 91 90 05/01/21 08:00 05/01/21 09:12 05/01/21 09:18 Temperature 97.2 F L Pulse Rate 71 74 Respiratory Rate 23 H 19 Blood Pressure 118/63 Pulse Oximetry 93 93 05/01/21 10:00 05/01/21 12:00 05/01/21 14:00 Temperature 97.1 F L 98.8 F Pulse Rate 69 75 68 Respiratory Rate 20 22 H Blood Pressure 147/84 H 118/70 Pulse Oximetry 97 96 05/01/21 16:00 Temperature 9
[2021-05-02] VITALS (27 sets, daily range): BP systolic 111–157; BP diastolic 52–86; PULSE 60–89; RESP 14–30; TEMP 36.6–37.1; O2SAT 90–99
[2021-05-02] MEDS: ALBUTEROL SULFATE (*SP) INHALER 4 PUFF INHALATION ×4 (01:59→20:31)
[2021-05-02 04:42] LABS: Alveolar/Arterial O2 Gradient 475.3 mmHg; Base Excess ABG 4.4 mEq/l (+/-2.0); Carboxyhemoglobin 0.3 % THb (0-2.0); Fractional Inspired Oxygen 90 %; HCO3 ABG 27.2 mEq/l (22.0-26.0); Methemoglobin ABG 0.3 %THb (0-1.5); Oxygen Content ABG 19.7 %vol (16.0-22.0); Oxygen Saturation ABG 98.9 % (95.0-100.0); Oxyhemoglobin 97.5 % THb (90.0-100.0); PO2 ABG 130.5 mmHg (80.0-100.0); PO2 FiO2 Ratio Arterial Blood 1.45 %; Reduced Hemoglobin 1.9 %THb (0-5.0); Total Hemoglobin 14.2 g/dL (12.0-18.0)
[2021-05-02 04:44] LABS: Modified Allen's Test Pass; Site Drawn RIGHT RADIAL; pH ABG 7.509 (7.350-7.450)
[2021-05-02 04:45] LABS: Device HIGH FLOW THERAPY
[2021-05-02] MEDS: BENZONATATE 100 MG CAPSULE PO ×2 (06:00→08:50)
[2021-05-02 06:08] LABS: Hematocrit 38.4 % (37.0-47.0); Hemoglobin 12.9 g/dL (12.0-15.0); Mean Corpuscular HGB Conc 33.6 g/dl (32-36); Mean Corpuscular Hemoglobin 28.7 pg (26-34); Mean Corpuscular Volume 85.5 fl (80-100); Platelet Count Result 272 k/mm3 (150-375); Red Blood Count 4.49 M/mm3 (4.2-5.4); Red Cell Distribution Width 13.1 % (11.5-14.5); White Blood Count 4.2 K/mm3 (4.5-10.0)
[2021-05-02 06:20] LABS: D Dimer 0.69 ug/mL (<0.48)
[2021-05-02 06:24] LABS: Alanine Aminotransferase 135 U/L (4-35); Alkaline Phosphatase 44 U/L (38-126); Anion Gap 8 mmol/L (8-16); Aspartate Amino Transferase 120 U/L (14-36); Bilirubin,Total 0.2 mg/dL (0.2-1.3); Blood Urea Nitrogen 21 mg/dL (7-17); Calcium 8.1 mg/dL (8.4-10.2); Carbon Dioxide 27 mmol/L (22-30); Chloride 97 mmol/L (98-107); Estimated CRCL calculation 111 ml/min; Estimated Glomerular Filt Rate > 60; Glucose 141 mg/dL (65-110); Magnesium 2.1 mg/dL (1.6-2.3); Potassium 3.4 mmol/L (3.4-5.0); Sodium 132 mmol/L (137-145)
[2021-05-02] MEDS: CENTRAL LINE FLUSH 10 ML IV PUSH ×3 (06:54→20:20)
[2021-05-02 07:09] LABS: CRP 4.1 mg/dL (<1.0); Lactate Dehydrogenase 1465 U/L (313-618)
[2021-05-02] MEDS: amLODIPine BESYLATE 5 MG TABLET PO (08:50)
[2021-05-02] MEDS: PANTOPRAZOLE SODIUM IV 40 MG VIAL IV PUSH (08:50)
[2021-05-02] MEDS: ENALAPRIL MALEATE 10 MG TABLET PO (08:50)
[2021-05-02] MEDS: guaiFENesin 12 HR 600 MG TABCR PO ×2 (08:50→20:19)
[2021-05-02] MEDS: ENOXAPARIN 40 MG/0.4 ML SYRINGE SUB-Q ×2 (08:50→20:18)
--- NOTE | 2021-05-02 08:52 | WPDINTPN ---
Progress Note: A&P Assessment and Plan (1) Acute respiratory failure with hypoxia: Code(s): J96.01 - Acute respiratory failure with hypoxia Status: Acute Assessment and Plan: Acute hypoxic respiratory failure likely related COVID pneumonia -checks x-ray shows worsening diffuse lung disease consistent with pneumonia no pulmonary edema - patient remains on high-flow therapy Airvo, 90% FiO2 and 60 L flow -I discussed with patient regarding prone position, she has been laying on her sides but not prone. I have encouraged her to push herself and tried to prone herself for as long as she can. -continue small dose of Xanax p.r.n. -continue bronchodilators -patient complaining of cough, on guaifenesin, will add [place] Lassiter (2) Pneumonia due to COVID-19 virus: Code(s): U07.1 - COVID-19; J12.82 - Pneumonia due to coronavirus disease 2018 Status: Acute Assessment and Plan: COVID pneumonia, patient is NOT vaccinated -continue droplet, airborne, contact isolation/precautions -inflammatory markers are elevated -on 05/01/2021: The chest x-ray had worsened increased oxygen requirements and elevated CRP, I discussed discussed with patient regarding tocilizumab, to which she was agreeable and patient was given 1 does of tocilizumab on 05/01/2021 -continue Remdesivir (total of 5 days) and dexamethasone (total of 10 days) (3) Asthma: Code(s): J45.909 - Unspecified asthma, uncomplicated Status: Acute Assessment and Plan: Continue bronchodilators and supplementary oxygen (4) Transaminitis: Code(s): R74.01 - Elevation of levels of liver transaminase levels Status: Acute Assessment and Plan: Elevated LFTs but plateauing 8 total bilirubin is 0.4 -hepatitis panel is negative -right upper quadrant ultrasound: Status post cholecystectomy (5) DVT prophylaxis: Code(s): Z29.9 - Encounter for prophylactic measures, unspecified Status: Acute Assessment and Plan: Continue enoxaparin 40 mg SQ q.12 hours Additional Plan Discussed with patient at length and updated with her condition and plan of care. I answered all questions. I have again encouraged patient to be in prone position for as long as she can tolerate. She is going to try again she says Code status: Full code Critical care time spent: 33 minutes This dictation may have been done utilizing a voice recognition system. Attempts have been made to correct errors. However, there may be uncorrected grammatical, spelling, and recognition errors present. Due to a high probability of clinically significant, life threatening deterioration, the patient required my highest level of preparedness to intervene emergently and I personally spent this critical care time directly and personally managing the patient. This critical care time included obtaining a history; examining the patient; pulse oximetry; ordering and review of studies; arranging urgent treatment with development of a management plan; evaluation of patient's response to treatment; frequent reassessment; and discussions with other providers. It was exclusive of separately billable procedures and treating other patients and teaching time. Please see Assessment and Plan section and the rest of the note for further information on patient assessment and treatment Subjective Date/time seen: 05/02/21 08:52 Interval history: Reason for consult: Acute hypoxic respiratory failure with increased oxygen requirements, COVID pneumonia, hypokalemia, elevated LFTs -Tocilizumab received on 05/01/2021 05/02/2021: Patient seen and examined the ICU, remains on high-flow therapy, 90% FiO2 and 60 L flow rate. Patient complains cough, denies any tachypnea, chest pain, abdominal pain, nausea or vomiting. Patient denies any loss of sense of taste or smell. Patient received tocilizumab on 05/01/2021. PO2 on the ABG has significantly improved, CRP trending down Review of Syst
[2021-05-02] MEDS: ALPRAZolam (*CRX) 0.125 MG TABLET PO ×2 (09:04→21:36)
[2021-05-02] MEDS: BENZONATATE 100 MG CAPSULE 200 MG PO ×3 (09:30→17:20)
[2021-05-02] MEDS: REMDESIVIR 100 MG/NS 250 ML 100 MG/250 ML BAG 250 MG IVPB (10:00)
--- NOTE | 2021-05-02 15:00 | PM.IMPN ---
Progress Note: A&P Assessment and Plan (1) Acute respiratory failure with hypoxia: Code(s): J96.01 - Acute respiratory failure with hypoxia Status: Acute Assessment and Plan: Acute hypoxic respiratory failure related COVID pneumonia -checks x-ray shows worsening diffuse lung disease consistent with pneumonia -patient moved to ICU -She remains on high-flow therapy Airvo, 90% FiO2 and 60 L flow; wean O2 as toelrated -patient can not tolerate lying prone but able to lie on her side at times; encouraged her to alternate sides. -continue bronchodilators Received tocilizumab 05/01/2021 (2) Pneumonia due to COVID-19 virus: Code(s): U07.1 - COVID-19; J12.82 - Pneumonia due to coronavirus disease 2018 Status: Acute Assessment and Plan: COVID pneumonia, patient was NOT vaccinated. -continue droplet, airborne, contact isolation/precautions -inflammatory markers are elevated; continue to follow intermittently -patient was agreeable for tocilizumab and this was given 05/01/21; watch for evidence of 2nd bacterial infection -continue Remdesivir (total of 5 days) and dexamethasone (total of 10 days) received a dose of tocilizumab 05/01/2021 (3) Asthma: Code(s): J45.909 - Unspecified asthma, uncomplicated Status: Acute Assessment and Plan: As above. (4) Transaminitis: Code(s): R74.01 - Elevation of levels of liver transaminase levels Status: Acute Assessment and Plan: Elevated AST/ALT. AST trending down now. RUQ normal. Hepatitis panel negative. Follow (5) DVT prophylaxis: Code(s): Z29.9 - Encounter for prophylactic measures, unspecified Status: Acute Assessment and Plan: Lovenox Subjective Date/time seen: 05/02/21 15:00 Interval history: Date of service: 05/01/2021 71 year old female with a history of ashtma and hypertension who is seen in follow up for acute respiratory failure from COVID-19. Feeling better today received a dose of tocilizumab yesterday. She is up on the chair today oxygen level has lowered down to 45% FiO2 and 40 L per minute flow. Complains of weakness however tolerating diet minimal cough. Review of Systems Review of Systems: All systems reviewed & are unremarkable except as noted in HPI and below Exam Narrative: Gen - NARD sitting on the chair Chest - scattered rhonchi psteriorly. nml RR. CV - RRR S1/S2; Tele showing no significant dysrhythmias Abd - Soft, NT/ND, Positive BS -Shaw secured draining clear yellow urine. Ext - No pedal edema no cyanosis or clubbing Neuro - Alert and oriented. Nonfocal exam. Psych - Nml mood and affect Skin - Warm and dry Objective Data Vital Signs Vital Signs: Vital Signs - 24 hr 05/01/21 16:00 05/01/21 16:30 05/01/21 18:00 Temperature 98.4 F 98.4 F Pulse Rate 68 57 L Respiratory Rate 19 18 Blood Pressure 136/104 H 128/75 128/75 Pulse Oximetry 95 96 05/01/21 20:00 05/01/21 20:40 05/01/21 20:58 Temperature 98.1 F Pulse Rate 63 66 68 Respiratory Rate 16 13 Blood Pressure 134/66 Pulse Oximetry 95 93 96 05/01/21 22:00 05/02/21 00:00 05/02/21 00:01 Temperature 98.4 F 98.1 F Pulse Rate 60 63 61 Respiratory Rate 21 H 30 H Blood Pressure 121/55 L 111/58 L Pulse Oximetry 95 95 96 05/02/21 02:00 05/02/21 02:01 05/02/21 04:00 Temperature 98.1 F Pulse Rate 65 65 64 Respiratory Rate 18 22 H Blood Pressure 134/69 Pulse Oximetry 99 95 05/02/21 04:07 05/02/21 06:00 05/02/21 06:01 Temperature 97.9 F 97.8 F Pulse Rate 60 78 73 Respiratory Rate 22 H 17 Blood Pressure 121/52 L 140/86 Pulse Oximetry 94 93 05/02/21 08:00 05/02/21 09:38 05/02/21 09:56 Temperature 98.1 F Pulse Rate 65 75 78 Respiratory Rate 14 21 H 25 H Blood Pressure 125/64 Pulse Oximetry 92 93 05/02/21 10:00 05/02/21 11:58 05/02/21 12:00 Temperature 98.4 F Pulse Rate 73 64 73 Respiratory Rate 16 20 23 H Blood Pressure
[2021-05-02] MEDS: rOPINIRole HCL 1 MG TABLET PO (20:20)
--- NOTE | 2021-05-02 23:42 | PCRCNOTE ---
pt optiflow 50 Liters, 74% sp02 95%.
[2021-05-03] VITALS (25 sets, daily range): BP systolic 112–176; BP diastolic 69–98; PULSE 63–87; RESP 12–25; TEMP 36.5–37; O2SAT 88–99
[2021-05-03] MEDS: ALBUTEROL SULFATE (*SP) INHALER 4 PUFF INHALATION ×4 (02:24→20:56)
[2021-05-03 04:21] LABS: Base Excess ABG 4.6 mEq/l (+/-2.0); Carboxyhemoglobin 0.3 % THb (0-2.0); Fractional Inspired Oxygen 74 %; HCO3 ABG 27.7 mEq/l (22.0-26.0); Methemoglobin ABG 0.4 %THb (0-1.5); Oxygen Content ABG 14.9 %vol (16.0-22.0); Oxygen Saturation ABG 95.8 % (95.0-100.0); Oxyhemoglobin 94.1 % THb (90.0-100.0); PCO2 ABG 35.6 mmHg (35.0-45.0); PO2 ABG 71.7 mmHg (80.0-100.0); PO2 FiO2 Ratio Arterial Blood 0.97 %; Reduced Hemoglobin 5.2 %THb (0-5.0); Total Hemoglobin 11.2 g/dL (12.0-18.0)
[2021-05-03 04:24] LABS: Modified Allen's Test Pass; Site Drawn RIGHT RADIAL; pH ABG 7.509 (7.350-7.450)
[2021-05-03 04:25] LABS: Device HIGH FLOW NASAL CANN
[2021-05-03 05:30] LABS: Hematocrit 40.3 % (37.0-47.0); Hemoglobin 13.4 g/dL (12.0-15.0); Mean Corpuscular HGB Conc 33.3 g/dl (32-36); Mean Corpuscular Hemoglobin 28.6 pg (26-34); Mean Corpuscular Volume 86.1 fl (80-100); Mean Platelet Volume 9.1 fl (7.4-10.4); Platelet Count Result 302 k/mm3 (150-375); Red Blood Count 4.68 M/mm3 (4.2-5.4); Red Cell Distribution Width 13.2 % (11.5-14.5); White Blood Count 5.9 K/mm3 (4.5-10.0)
[2021-05-03 05:40] LABS: Alanine Aminotransferase 133 U/L (4-35); Albumin Level 3.1 g/dL (3.5-5.1); Alkaline Phosphatase 54 U/L (38-126); Anion Gap 6 mmol/L (8-16); Aspartate Amino Transferase 84 U/L (14-36); Bilirubin,Total 0.5 mg/dL (0.2-1.3); Blood Urea Nitrogen 21 mg/dL (7-17); Calcium 8.5 mg/dL (8.4-10.2); Carbon Dioxide 28 mmol/L (22-30); Chloride 101 mmol/L (98-107); Estimated CRCL calculation 111 ml/min; Estimated Glomerular Filt Rate > 60; Glucose 140 mg/dL (65-110); Phosphorus 3.7 mg/dL (2.5-4.5); Potassium 3.9 mmol/L (3.4-5.0); Sodium 135 mmol/L (137-145)
[2021-05-03 05:44] LABS: Prothrombin Time 12.9 Seconds (11.1-14.7)
[2021-05-03] MEDS: CENTRAL LINE FLUSH 10 ML IV PUSH ×3 (06:12→20:32)
[2021-05-03] MEDS: guaiFENesin 12 HR 600 MG TABCR PO ×2 (08:24→20:32)
[2021-05-03] MEDS: amLODIPine BESYLATE 5 MG TABLET PO (08:24)
[2021-05-03] MEDS: ENOXAPARIN 40 MG/0.4 ML SYRINGE SUB-Q ×2 (08:25→20:32)
[2021-05-03] MEDS: ENALAPRIL MALEATE 10 MG TABLET PO (08:25)
[2021-05-03] MEDS: BENZONATATE 100 MG CAPSULE 200 MG PO ×3 (08:25→16:28)
[2021-05-03] MEDS: PANTOPRAZOLE SODIUM IV 40 MG VIAL IV PUSH (08:26)
--- NOTE | 2021-05-03 09:22 | WPDINTPN ---
Progress Note: A&P Assessment and Plan (1) Acute respiratory failure with hypoxia: Code(s): J96.01 - Acute respiratory failure with hypoxia Status: Acute Assessment and Plan: Acute hypoxic respiratory failure likely related COVID pneumonia -05/03: checks x-ray shows stable airspace disease compatible with pneumonia - patient remains on high-flow therapy Airvo, 74% FiO2 and 60 L flow rate, will wean FiO2 maintain also sats > 92% -I discussed with patient regarding prone position, she has been laying on her sides but not prone. I have encouraged her to push herself and tried to prone herself for as long as she can. Also have asked the bedside RN to encourage the patient the prone position -continue small dose of Xanax p.r.n. -continue bronchodilators -patient complaining of cough, continue guaifenesin and Tessalon Perles (2) Pneumonia due to COVID-19 virus: Code(s): U07.1 - COVID-19; J12.82 - Pneumonia due to coronavirus disease 2019 Status: Acute Assessment and Plan: COVID pneumonia, patient is NOT vaccinated -continue droplet, airborne, contact isolation/precautions -inflammatory markers are elevated -on 05/01/2021: The chest x-ray had worsened increased oxygen requirements and elevated CRP, I discussed discussed with patient regarding tocilizumab, to which she was agreeable and patient was given 1 does of tocilizumab on 05/01/2021 -continue Remdesivir (total of 5 days) and dexamethasone (total of 10 days) (3) Asthma: Code(s): J45.909 - Unspecified asthma, uncomplicated Status: Acute Assessment and Plan: Continue bronchodilators and supplementary oxygen (4) Transaminitis: Code(s): R74.01 - Elevation of levels of liver transaminase levels Status: Acute Assessment and Plan: Elevated LFTs but plateauing 8 total bilirubin is 0.4 -hepatitis panel is negative -right upper quadrant ultrasound: Status post cholecystectomy (5) DVT prophylaxis: Code(s): Z29.9 - Encounter for prophylactic measures, unspecified Status: Acute Assessment and Plan: Continue enoxaparin 40 mg SQ q.12 hours Additional Plan Discussed with patient at length and updated with her condition and plan of care. I answered all questions. I have again encouraged patient to be in prone position for as long as she can tolerate. She is going to try again she says Code status: Full code Critical care time spent: 32 minutes This dictation may have been done utilizing a voice recognition system. Attempts have been made to correct errors. However, there may be uncorrected grammatical, spelling, and recognition errors present. Due to a high probability of clinically significant, life threatening deterioration, the patient required my highest level of preparedness to intervene emergently and I personally spent this critical care time directly and personally managing the patient. This critical care time included obtaining a history; examining the patient; pulse oximetry; ordering and review of studies; arranging urgent treatment with development of a management plan; evaluation of patient's response to treatment; frequent reassessment; and discussions with other providers. It was exclusive of separately billable procedures and treating other patients and teaching time. Please see Assessment and Plan section and the rest of the note for further information on patient assessment and treatment Subjective Date/time seen: 05/03/21 09:22 Interval history: Reason for consult: Acute hypoxic respiratory failure with increased oxygen requirements, COVID pneumonia, hypokalemia, elevated LFTs -Tocilizumab received on 05/01/2021 05/03/2021: Patient remains on high-flow therapy, 74% FiO2 and 40 L flow rate. Patient has been sitting up in chair and feels better. She states her cough is better but productive clear sputum. Patient denies any tachypnea, chest pain, abdominal pain, nausea, vomiting or
[2021-05-03] MEDS: REMDESIVIR 100 MG/NS 250 ML 100 MG/250 ML BAG 250 MG IVPB (10:34)
[2021-05-03] MEDS: CALCIUM CARBONATE (TUMS) 500 MG (200 MG ELEMENTAL) PO (16:28)
[2021-05-03] MEDS: rOPINIRole HCL 1 MG TABLET PO (20:32)
[2021-05-03] MEDS: ALPRAZolam (*CRX) 0.125 MG TABLET PO (21:46)
[2021-05-04] VITALS (24 sets, daily range): BP systolic 132–161; BP diastolic 73–102; PULSE 60–92; RESP 16–27; TEMP 35.5–36.6; O2SAT 88–97
[2021-05-04] MEDS: ALBUTEROL SULFATE (*SP) INHALER 4 PUFF INHALATION ×4 (01:36→20:27)
[2021-05-04 06:26] LABS: Hematocrit 39.7 % (37.0-47.0); Hemoglobin 13.3 g/dL (12.0-15.0); Mean Corpuscular HGB Conc 33.5 g/dl (32-36); Mean Corpuscular Hemoglobin 28.9 pg (26-34); Mean Corpuscular Volume 86.3 fl (80-100); Mean Platelet Volume 9.3 fl (7.4-10.4); Platelet Count Result 313 k/mm3 (150-375); Red Cell Distribution Width 13.1 % (11.5-14.5); White Blood Count 7.4 K/mm3 (4.5-10.0)
[2021-05-04] MEDS: CENTRAL LINE FLUSH 10 ML IV PUSH ×3 (06:32→21:13)
[2021-05-04 06:39] LABS: D Dimer 1.05 ug/mL (<0.48)
[2021-05-04 06:40] LABS: Alanine Aminotransferase 106 U/L (4-35); Albumin Level 3.1 g/dL (3.5-5.1); Alkaline Phosphatase 53 U/L (38-126); Anion Gap 6 mmol/L (8-16); Aspartate Amino Transferase 56 U/L (14-36); Bilirubin,Total 0.5 mg/dL (0.2-1.3); Blood Urea Nitrogen 20 mg/dL (7-17); CRP 2.1 mg/dL (<1.0); Calcium 8.5 mg/dL (8.4-10.2); Carbon Dioxide 27 mmol/L (22-30); Chloride 102 mmol/L (98-107); Estimated CRCL calculation 109 ml/min; Estimated Glomerular Filt Rate > 60; Glucose 132 mg/dL (65-110); Lactate Dehydrogenase 1521 U/L (313-618); Magnesium 2.1 mg/dL (1.6-2.3); Phosphorus 3.6 mg/dL (2.5-4.5); Sodium 135 mmol/L (137-145)
[2021-05-04] MEDS: PANTOPRAZOLE SODIUM IV 40 MG VIAL IV PUSH (08:39)
[2021-05-04] MEDS: ENOXAPARIN 40 MG/0.4 ML SYRINGE SUB-Q ×2 (08:39→21:14)
[2021-05-04] MEDS: amLODIPine BESYLATE 5 MG TABLET 10 MG PO (08:40)
[2021-05-04] MEDS: BENZONATATE 100 MG CAPSULE 200 MG PO ×3 (08:40→17:42)
[2021-05-04] MEDS: guaiFENesin 12 HR 600 MG TABCR PO ×2 (08:42→21:13)
[2021-05-04] MEDS: ENALAPRIL MALEATE 10 MG TABLET PO (08:42)
--- NOTE | 2021-05-04 11:41 | WPDINTPN ---
Progress Note: A&P Assessment and Plan (1) Acute respiratory failure with hypoxia: Code(s): J96.01 - Acute respiratory failure with hypoxia Status: Acute Assessment and Plan: Acute hypoxic respiratory failure likely related COVID pneumonia -05/03: checks x-ray shows stable airspace disease compatible with pneumonia - patient remains on high-flow therapy Airvo, 60 % FiO2 and 40 L flow rate, will wean FiO2 maintain also sats > 92% -I discussed with patient regarding prone position, she has been laying on her sides but not prone. I have encouraged her to push herself and tried to prone herself for as long as she can. Also have asked the bedside RN to encourage the patient the prone position -continue small dose of Xanax p.r.n. -continue bronchodilators -patient complaining of cough, continue guaifenesin and Tessalon Perles (2) Pneumonia due to COVID-19 virus: Code(s): U07.1 - COVID-19; J12.82 - Pneumonia due to coronavirus disease 2019 Status: Acute Assessment and Plan: COVID pneumonia, patient is NOT vaccinated -continue droplet, airborne, contact isolation/precautions -inflammatory markers are trending down -on 05/01/2021: The chest x-ray had worsened increased oxygen requirements and elevated CRP, I discussed discussed with patient regarding tocilizumab, to which she was agreeable and patient was given 1 does of tocilizumab on 05/01/2021 -status post 5 days of remdesivir -continue dexamethasone (total of 10 days) (3) Asthma: Code(s): J45.909 - Unspecified asthma, uncomplicated Status: Acute Assessment and Plan: Continue bronchodilators and supplementary oxygen (4) Transaminitis: Code(s): R74.01 - Elevation of levels of liver transaminase levels Status: Acute Assessment and Plan: LFTs improving, bilirubin is normal -hepatitis panel is negative -right upper quadrant ultrasound: Status post cholecystectomy (5) DVT prophylaxis: Code(s): Z29.9 - Encounter for prophylactic measures, unspecified Status: Acute Assessment and Plan: Continue enoxaparin 40 mg SQ q.12 hours Additional Plan Stress ulcer prophylaxis: Protonix Nutrition: Tolerating regular diet Discussed with patient at length and updated with her condition and plan of care. I answered all questions. I have again encouraged patient to be in prone position for as long as she can tolerate. Code status: Full code Critical care time spent: 33 minutes This dictation may have been done utilizing a voice recognition system. Attempts have been made to correct errors. However, there may be uncorrected grammatical, spelling, and recognition errors present. Due to a high probability of clinically significant, life threatening deterioration, the patient required my highest level of preparedness to intervene emergently and I personally spent this critical care time directly and personally managing the patient. This critical care time included obtaining a history; examining the patient; pulse oximetry; ordering and review of studies; arranging urgent treatment with development of a management plan; evaluation of patient's response to treatment; frequent reassessment; and discussions with other providers. It was exclusive of separately billable procedures and treating other patients and teaching time. Please see Assessment and Plan section and the rest of the note for further information on patient assessment and treatment Subjective Date/time seen: 05/04/21 11:41 Interval history: Reason for consult: Acute hypoxic respiratory failure with increased oxygen requirements, COVID pneumonia, hypokalemia, elevated LFTs -Tocilizumab received on 05/01/2021 05/04/2021: Remains in ICU patient on high-flow therapy, 60% FiO2 and 40 L flow rate. Patient is sitting in the recliner, seems to be comfortable. States she is just frustrated of being in the ICU and in a confined room. Patient denies any c
--- NOTE | 2021-05-04 15:42 | PM.IMPN ---
Progress Note: A&P Assessment and Plan (1) Acute respiratory failure with hypoxia: Code(s): J96.01 - Acute respiratory failure with hypoxia Status: Acute Assessment and Plan: Acute hypoxic respiratory failure related COVID pneumonia -chest x-ray shows worsening diffuse lung disease consistent with pneumonia -patient moved to ICU 8/5 PM -She remains on high-flow therapy Airvo with imprvoed settings: 60% FiO2 and 40L flow; wean O2 as tolerated -patient can not tolerate lying prone -continue bronchodilators (2) Pneumonia due to COVID-19 virus: Code(s): U07.1 - COVID-19; J12.82 - Pneumonia due to coronavirus disease 2018 Status: Acute Assessment and Plan: COVID pneumonia, patient was NOT vaccinated. -continue droplet, airborne, contact isolation/precautions -inflammatory markers are elevated. Some are improving. Continue to follow intermittently -patient was agreeable for tocilizumab and this was given 05/01/21; watch for evidence of 2nd bacterial infection -she finished Remdesivir (05/03/21); Continue dexamethasone (total of 10 days) -wean o2 as toelrated (3) Asthma: Code(s): J45.909 - Unspecified asthma, uncomplicated Status: Acute Assessment and Plan: As above. (4) Transaminitis: Code(s): R74.01 - Elevation of levels of liver transaminase levels Status: Acute Assessment and Plan: Elevated AST/ALT. AST and ALT trending down now. RUQ normal. Hepatitis panel negative. Follow (5) DVT prophylaxis: Code(s): Z29.9 - Encounter for prophylactic measures, unspecified Status: Acute Assessment and Plan: Lovenox Subjective Date/time seen: 05/04/21 15:42 Interval history: 71 year old female with a history of asthma and hypertension who is seen in follow up for acute respiratory failure from COVID-19. Resuming care. Chart reviewed. No issues overnight per nursing staff. Patient denies chest pain. Shortness of breath is unchanged. She still has a productive cough. She believes she slept okay last night. She denies any nausea or vomiting. No chest pain. No diarrhea. Exam Narrative: AF 95.9 135/79 79 16 94% Airvo Gen - NARD lying semirecumbent in bed Chest - few inspiratory scattered rhonchi posteriorly. nml RR. No conversational dyspnea CV - RRR S1/S2; Tele showing no significant dysrhythmias Abd - Soft, NT/ND, Positive BS -Shaw secured draining clear yellow urine. Ext - No pedal edema Psych - Nml mood but odd affect Skin - Warm and dry Objective Data Vital Signs Vital Signs: Vital Signs - 24 hr 05/03/21 16:00 05/03/21 18:00 05/03/21 20:00 Temperature 98.1 F 98.2 F Pulse Rate 79 87 83 Respiratory Rate 18 18 Blood Pressure 124/95 H 156/91 H Pulse Oximetry 92 92 91 05/03/21 20:01 05/03/21 20:57 05/03/21 21:05 Temperature 98.6 F Pulse Rate 82 71 80 Respiratory Rate 21 H 16 24 H Blood Pressure 142/87 H Pulse Oximetry 92 95 05/03/21 22:00 05/03/21 22:01 05/04/21 00:00 Temperature 98.3 F Pulse Rate 81 81 84 Respiratory Rate 12 Blood Pressure 151/73 H Pulse Oximetry 98 90 05/04/21 00:01 05/04/21 01:37 05/04/21 01:41 Temperature 97.6 F Pulse Rate 79 62 68 Respiratory Rate 16 24 H 24 H Blood Pressure 153/102 H Pulse Oximetry 89 L 95 05/04/21 01:42 05/04/21 02:00 05/04/21 02:01 Temperature Pulse Rate 79 79 78 Respiratory Rate 22 H 17 Blood Pressure 161/83 H Pulse Oximetry 91 05/04/21 04:00 05/04/21 04:01 05/04/21 06:00 Temperature 97.2 F L Pulse Rate 61 60 73 Respiratory Rate 23 H Blood Pressure 135/78 Pulse Oximetry 90 97 05/04/21 06:01 05/04/21 08:00 05/04/21 09:27 Temperature 95.9 F L Pulse Rate 73 83 75 Respiratory Rate 17 19 16 Blood Pressure 154/79 H 141/81 H Pulse Oximetry 93 90 92 05/04/21 10:00 05/04/21 12:00 05/04/21 15:19 Temperature Pulse Rate 68 66 79 Respiratory Rate 27 H 16 Blood Pressure 135
[2021-05-04] MEDS: rOPINIRole HCL 1 MG TABLET PO (21:12)
[2021-05-04] MEDS: ALPRAZolam (*CRX) 0.125 MG TABLET PO (21:13)
[2021-05-05] VITALS (19 sets, daily range): BP systolic 125–176; BP diastolic 81–101; PULSE 59–101; RESP 13–25; TEMP 36.1–36.9; O2SAT 86–97
[2021-05-05] MEDS: ALBUTEROL SULFATE (*SP) INHALER 4 PUFF INHALATION ×4 (02:10→20:58)
[2021-05-05 03:40] LABS: Hematocrit 40.3 % (37.0-47.0); Hemoglobin 13.8 g/dL (12.0-15.0); Mean Corpuscular HGB Conc 34.2 g/dl (32-36); Mean Corpuscular Hemoglobin 30.3 pg (26-34); Mean Corpuscular Volume 88.4 fl (80-100); Mean Platelet Volume 8.9 fl (7.4-10.4); Platelet Count Result 295 k/mm3 (150-375); Red Blood Count 4.56 M/mm3 (4.2-5.4); Red Cell Distribution Width 13.6 % (11.5-14.5)
[2021-05-05 03:54] LABS: Alanine Aminotransferase 89 U/L (4-35); Albumin Level 3.1 g/dL (3.5-5.1); Alkaline Phosphatase 65 U/L (38-126); Anion Gap 5 mmol/L (8-16); Aspartate Amino Transferase 47 U/L (14-36); Bilirubin,Total 0.5 mg/dL (0.2-1.3); Blood Urea Nitrogen 19 mg/dL (7-17); Calcium 8.5 mg/dL (8.4-10.2); Carbon Dioxide 28 mmol/L (22-30); Chloride 99 mmol/L (98-107); Estimated CRCL calculation 109 ml/min; Estimated Glomerular Filt Rate > 60; Glucose 157 mg/dL (65-110); Magnesium 2.1 mg/dL (1.6-2.3); Phosphorus 3.2 mg/dL (2.5-4.5); Potassium 3.6 mmol/L (3.4-5.0); Sodium 132 mmol/L (137-145)
[2021-05-05] MEDS: CENTRAL LINE FLUSH 10 ML IV PUSH ×3 (07:03→20:31)
[2021-05-05] MEDS: ENOXAPARIN 40 MG/0.4 ML SYRINGE SUB-Q ×2 (07:58→20:30)
[2021-05-05] MEDS: PANTOPRAZOLE SODIUM IV 40 MG VIAL IV PUSH (07:58)
[2021-05-05] MEDS: guaiFENesin 12 HR 600 MG TABCR PO ×2 (07:59→20:30)
[2021-05-05] MEDS: BENZONATATE 100 MG CAPSULE 200 MG PO ×3 (07:59→17:30)
[2021-05-05] MEDS: amLODIPine BESYLATE 5 MG TABLET 10 MG PO (07:59)
[2021-05-05] MEDS: ENALAPRIL MALEATE 10 MG TABLET PO (07:59)
[2021-05-05] MEDS: FUROSEMIDE INJ 40 MG/4 ML VIAL IV PUSH (08:34)
[2021-05-05] MEDS: ALPRAZolam (*CRX) 0.125 MG TABLET PO ×2 (08:34→20:28)
[2021-05-05] MEDS: ACETAMINOPHEN 325 MG TABLET 650 MG PO ×2 (08:34→20:29)
--- NOTE | 2021-05-05 09:55 | PM.IMPN ---
Progress Note: A&P Assessment and Plan (1) Acute respiratory failure with hypoxia: Code(s): J96.01 - Acute respiratory failure with hypoxia Status: Acute Assessment and Plan: Acute hypoxic respiratory failure related COVID pneumonia -patient moved to ICU 8/5 PM -She remains on high-flow therapy Airvo with worsening O2 requirement; wean O2 as tolerated -patient can not tolerate lying prone -chest x-ray shows stable diffuse lung disease consistent with pneumonia and atelectasis -continue bronchodilators - Add flutter valve (2) Pneumonia due to COVID-19 virus: Code(s): U07.1 - COVID-19; J12.82 - Pneumonia due to coronavirus disease 2018 Status: Acute Assessment and Plan: COVID pneumonia, patient was NOT vaccinated. -continue droplet, airborne, contact isolation/precautions -inflammatory markers are elevated. Some are improving. Continue to follow intermittently -patient was agreeable for tocilizumab and this was given 05/01/21; watch for evidence of 2nd bacterial infection -she finished Remdesivir (05/03/21); Continue dexamethasone (total of 10 days) -wean O2 as tolerated (3) Asthma: Code(s): J45.909 - Unspecified asthma, uncomplicated Status: Acute Assessment and Plan: As above. (4) Transaminitis: Code(s): R74.01 - Elevation of levels of liver transaminase levels Status: Acute Assessment and Plan: Elevated AST/ALT. AST and ALT still trending down. RUQ normal. Hepatitis panel negative. Follow periodically (5) DVT prophylaxis: Code(s): Z29.9 - Encounter for prophylactic measures, unspecified Status: Acute Assessment and Plan: Lovenox Subjective Date/time seen: 05/05/21 09:55 Interval history: 71 year old female with a history of asthma and hypertension who is seen in follow up for acute respiratory failure from COVID-19. More hypoxic this morning requiring NRB mask. Complains of pleuritc right upper back pain. No chest pain. More SOB today. Up to the chair this morning. Eating okay. Exam Narrative: AF 97.7 176/82 86 18 93% Airvo with NRB mask Gen - NARD sitting up in the chair Chest - inspiratory crackles mid and lower lung gaytan R>L. CV - RRR S1/S2; Tele showing no significant dysrhythmias Abd - Soft, NT/ND, Positive BS -Shaw secured draining clear yellow urine. Ext - No pedal edema Psych - Nml mood Skin - Warm and dry Objective Data Vital Signs Vital Signs: Vital Signs - 24 hr 05/04/21 10:00 05/04/21 12:00 05/04/21 14:00 Temperature 96.1 F L Pulse Rate 68 65 74 Respiratory Rate 27 H 23 H 23 H Blood Pressure 135/79 143/79 H 137/86 Pulse Oximetry 91 93 93 05/04/21 15:19 05/04/21 16:00 05/04/21 18:00 Temperature 96.1 F L Pulse Rate 79 75 86 Respiratory Rate 16 22 H 22 H Blood Pressure 132/73 146/89 H Pulse Oximetry 94 88 L 88 L 05/04/21 20:00 05/04/21 20:28 05/04/21 20:30 Temperature 97.8 F Pulse Rate 82 92 83 Respiratory Rate 17 17 Blood Pressure 149/95 H Pulse Oximetry 93 94 05/04/21 21:20 05/04/21 22:00 05/05/21 00:00 Temperature 97.6 F Pulse Rate 83 78 71 Respiratory Rate 17 18 19 Blood Pressure 156/91 H 125/85 Pulse Oximetry 94 92 91 05/05/21 02:00 05/05/21 02:10 05/05/21 04:00 Temperature 97.4 F L Pulse Rate 79 76 67 Respiratory Rate 22 H 13 22 H Blood Pressure 143/99 H 148/85 H Pulse Oximetry 91 91 05/05/21 06:00 05/05/21 07:53 05/05/21 08:00 Temperature 97.7 F Pulse Rate 77 89 Respiratory Rate 17 20 Blood Pressure 163/93 H 176/82 H Pulse Oximetry 94 92 92 05/05/21 08:50 Temperature Pulse Rate 86 Respiratory Rate 18 Blood Pressure Pulse Oximetry 86 L Intake/Output Intake/Output: Intake & Output 05/02/21 05/03/21 05/04/21 05/05/21 23:59 23:59 23:59 23:59 Intake Total 1500 1450 1110 300 Output Total 1050 1425 1900 750 Balance 450 25 790 -450 Meds/Results Medications: Active Medications Ge
[2021-05-05 11:42] LABS: INR 0.9; Prothrombin Time 12.3 Seconds (11.1-14.7)
--- NOTE | 2021-05-05 11:44 | WPDINTPN ---
Progress Note: A&P Assessment and Plan (1) Acute respiratory failure with hypoxia: Code(s): J96.01 - Acute respiratory failure with hypoxia Status: Acute Assessment and Plan: Acute hypoxic respiratory failure likely related COVID pneumonia -05/03: checks x-ray shows stable airspace disease compatible with pneumonia - patient remains on high-flow therapy Airvo, 70 % FiO2 and 40 L flow rate, will wean FiO2 maintain also sats > 92% -I discussed with patient regarding prone position, she has been laying on her sides but not prone. I have encouraged her to push herself and tried to prone herself for as long as she can. Also have asked the bedside RN to encourage the patient the prone position -continue small dose of Xanax p.r.n. -continue bronchodilators -patient complaining of cough, continue guaifenesin and Tessalon Perles (2) Pneumonia due to COVID-19 virus: Code(s): U07.1 - COVID-19; J12.82 - Pneumonia due to coronavirus disease 2019 Status: Acute Assessment and Plan: COVID pneumonia, patient is NOT vaccinated -continue droplet, airborne, contact isolation/precautions -inflammatory markers are trending down -on 05/01/2021: The chest x-ray had worsened increased oxygen requirements and elevated CRP, I discussed discussed with patient regarding tocilizumab, to which she was agreeable and patient was given 1 does of tocilizumab on 05/01/2021 -status post 5 days of remdesivir, will give additional 5 days Remdesivir -continue dexamethasone (total of 10 days) (3) Asthma: Code(s): J45.909 - Unspecified asthma, uncomplicated Status: Acute Assessment and Plan: Continue bronchodilators and supplementary oxygen (4) Transaminitis: Code(s): R74.01 - Elevation of levels of liver transaminase levels Status: Acute Assessment and Plan: LFTs improving, bilirubin is normal -hepatitis panel is negative -right upper quadrant ultrasound: Status post cholecystectomy (5) DVT prophylaxis: Code(s): Z29.9 - Encounter for prophylactic measures, unspecified Status: Acute Assessment and Plan: Continue enoxaparin 40 mg SQ q.12 hours Additional Plan Stress ulcer prophylaxis: Protonix Nutrition: Tolerating regular diet Discussed with patient at length and updated with her condition and plan of care. I answered all questions. I did discuss if her condition worsens and she requires a breathing machine or a ventilator, she stated that she will discuss when we reached that stage Code status: Full code Critical care time spent: 35 minutes This dictation may have been done utilizing a voice recognition system. Attempts have been made to correct errors. However, there may be uncorrected grammatical, spelling, and recognition errors present. Due to a high probability of clinically significant, life threatening deterioration, the patient required my highest level of preparedness to intervene emergently and I personally spent this critical care time directly and personally managing the patient. This critical care time included obtaining a history; examining the patient; pulse oximetry; ordering and review of studies; arranging urgent treatment with development of a management plan; evaluation of patient's response to treatment; frequent reassessment; and discussions with other providers. It was exclusive of separately billable procedures and treating other patients and teaching time. Please see Assessment and Plan section and the rest of the note for further information on patient assessment and treatment Subjective Date/time seen: 05/05/21 11:44 Interval history: Reason for consult: Acute hypoxic respiratory failure with increased oxygen requirements, COVID pneumonia, hypokalemia, elevated LFTs -Tocilizumab received on 05/01/2021 05/05/2021, remains in the ICU on high-flow therapy, now on 70% FiO2 and 40 L. patient sitting in the recliner, has a little bit of respirato
[2021-05-05 11:46] LABS: Alanine Aminotransferase 106 U/L (4-35); Estimated CRCL calculation 93 ml/min; Estimated Glomerular Filt Rate > 60
[2021-05-05] MEDS: ENALAPRIL MALEATE 5 MG TABLET PO (12:39)
[2021-05-05] MEDS: REMDESIVIR 100 MG/NS 250 ML 100 MG/250 ML BAG 250 MG IVPB (14:21)
[2021-05-05] MEDS: CALCIUM CARBONATE (TUMS) 500 MG (200 MG ELEMENTAL) PO (16:20)
[2021-05-05] MEDS: hydrALAZINE HCL 20 MG/ML VIAL 10 MG IV PUSH (20:29)
[2021-05-05] MEDS: rOPINIRole HCL 1 MG TABLET PO (20:31)
[2021-05-06] VITALS (38 sets, daily range): BP systolic 88–170; BP diastolic 61–107; PULSE 65–160; RESP 14–38; TEMP 36.2–37.5; O2SAT 70–94; BMI 31.4
[2021-05-06] MEDS: ALBUTEROL SULFATE NEB 2.5 MG/0.5 ML INH 5 MG INHALATION ×2 (01:09→08:04)
[2021-05-06] MEDS: IPRATROPIUM BR 0.02% INH SOLN 0.5 MG/2.5 ML VIAL INHALATION ×2 (01:09→08:04)
[2021-05-06] MEDS: RAPID SEQUENCE INTUBATION KIT 1 EACH (03:20)
[2021-05-06] MEDS: MIDAZOLAM 100MG/NS 100ML(*CRX) 100 MG/100 ML BAG 6 MG IV CONT (04:00)
[2021-05-06] MEDS: FENTANYL 2,500MCG/NS250ML(*CRX 2,500 MCG/250 ML BAG 20 MCG IV CONT ×2 (04:00→16:33)
--- NOTE | 2021-05-06 04:02 | ECG_ITS ---
Measurements Intervals [place] Rate: 108 P: 64 NV: 138 QRS: 46 QRSD: 89 T: 82 QT: 352 QTc: 474 Interpretive Statements SINUS TACHYCARDIA POSSIBLE RIGHT ATRIAL ENLARGEMENT POSSIBLE LEFT ATRIAL ENLARGEMENT DELAYED PRECORDIAL R/S TRANSITION BORDERLINE ST ABNORMALITY- ANTEROLATERAL LEADS BASELINE WANDER- I, II, III ABNORMAL ECG Electronically Signed On 05-06-2021 5:55:05 CDT by Pawan Shanks D.O.
--- NOTE | 2021-05-06 04:21 | WPDPROCEDUR ---
Procedures Intubation Intubation Date: 05/06/21 Intubation Time: 04:05 A pre-procedural Time-Out was completed immediately before starting the procedure and confirmed: Patient Identification, Site, Procedure, Patient Position and the Availability of Requisite Equipment: Yes Sedative: etomidate Mg given: 30 Paralytic: succinylcholine Mg given: 100 Laryngoscope: fiber optic video scope ET tube size: 7.5 Tube secured depth (cm): 24 Tube secured location: lips Tube placement confirmation: visualized tube passing through cords, equal breath sounds bilaterally, no breath sounds over epigastrium and confirmation by capnometry Patient tolerated procedure: well Intubation complications: hypoxia Additional comments: The patient was intubated after initial sedation with socks and etomidate. The patient was preoxygenated with Airvo and non-rebreather. Within switched to Ambu bag with PEEP valve with a pressure of 20. The patient's pulse ox did drop to the low 80s during the process of intubation. She was ventilated with bag-valve mask for couple of minutes after intubation with improvement in oxygen saturations up to the mid 80s. She was switched to the ventilator and initially desatted back down to the upper 70s. The patient was then ventilate of bag-valve mask again with improvement in oxygen saturations to the upper 80s. Ventilator adjustments were made with peep at 15 rate of 24 100% FiO2 tidal volume of 350 with improvement in oxygen saturations. Chest x-ray was reviewed after intubation and ensured ET tube in appropriate position. The patient did have an anterior airway.
--- NOTE | 2021-05-06 04:46 | PM.EVENT ---
Event Note Event Note Event Note: 05/06/2021 at 4:00 a.m. Nursing staff had notified me about an hour prior that the patient was maxed out on Airvo with a non-rebreather in place. The patient then began reporting sense of impending doom. Her oxygen saturations were dropping to 88% on Airvo with a non-rebreather. Her respiratory rate was climbing up to the low to mid 20s. Her blood pressure was climbing to the 180s to 200s systolic. The patient felt she could not continue with her current trajectory. She felt exhausted and is if she was not going to make it. I went and discussed her condition and treatment options. The patient was agreeable to intubation. The patient was subsequently intubated. During the course of intubation the patient's oxygen saturations did drop to the low 80s. Her pulse ox did improve after ventilation with bag-valve mask with a PEEP of 20. Time was spent with adjustments of the ventilator increasing the patient's PEEP up to 15. With a PEEP of 15 and FiO2 of 100% the patient's oxygen saturations improved to 91%. The patient was placed on a ventilator with a tidal volume of 350 peep of 15 rate of 24 with 100% FiO2. The patient was fighting against the ventilator and subsequently was placed on sedation with fentanyl and Versed. Her blood pressures did drop initially with sedation but improved after 1 L in fluid bolus. The patient was still having some dyssynchrony and patient was placed on Nimbex. The patient was stable for couple of hours on the settings but then began desatting down into the upper 80s. The patient's case was discussed with the hospitality team member who recommends the patient be proned. The patient's airway was anterior. GENERAL: Acutely ill-appearing, obese HEENT: Dry mucous membranes, pupils equal and reactive, ET tube 24th the lip CARDIOVASCULAR: Sinus tachycardia, EKG reviewed RESPIRATORY: Equal breath sounds bilaterally post intubation, tachypnea ABDOMEN: Soft, nontender, positive bowel sounds INTEGUMENT: Diaphoretic, warm to touch NEUROLOGIC: Alert and oriented x3, speech is clear PSYCHIATRIC: Appropriately anxious, cooperative EXTREMITIES: No clubbing, mild peripheral cyanosis : Shaw catheter in place 1. Worsening of acute hypoxic respiratory failure due to COVID pneumonia--the patient is now intubated sedated and on paralytic. The patient had already received Remdesivir, Decadron and Tocilizumab. [employer] was contacted and case was discussed in agrees with current plan of care. 60 minutes was spent in critical care activities. Due to a high probability of clinically significant, life threatening deterioration, the patient required my highest level of preparedness to intervene emergently and I personally spent this critical care time directly and personally managing the patient. This critical care time included obtaining a history; examining the patient; pulse oximetry; ordering and review of studies; arranging urgent treatment with development of a management plan; evaluation of patient's response to treatment; frequent reassessment; and discussions with other providers. It was exclusive of separately billable procedures and treating other patients and teaching time. Please see Assessment and Plan section and the rest of the note for further information on patient assessment and treatment.
[2021-05-06] MEDS: CISATRACURIUM BESYLATE 200 MG in DEXTROSE 5% 80 ML 8.81 ML IV CONT ×2 (05:08→14:31)
[2021-05-06] MEDS: CISATRACURIUM BESYLATE 20 MG/10 ML VIAL 14.7 MG IV PUSH (05:08)
[2021-05-06] MEDS: SODIUM CHLORIDE 0.9% IV 1,000 ML 999 ML IV CONT (05:39)
[2021-05-06] MEDS: CENTRAL LINE FLUSH 10 ML IV PUSH ×3 (05:39→20:07)
[2021-05-06 05:41] LABS: Hematocrit 42.3 % (37.0-47.0); Hemoglobin 13.7 g/dL (12.0-15.0); Mean Corpuscular HGB Conc 32.4 g/dl (32-36); Mean Corpuscular Hemoglobin 28.5 pg (26-34); Mean Corpuscular Volume 88.1 fl (80-100); Mean Platelet Volume 8.7 fl (7.4-10.4); Platelet Count Result 299 k/mm3 (150-375); Red Cell Distribution Width 13.2 % (11.5-14.5); White Blood Count 6.7 K/mm3 (4.5-10.0)
[2021-05-06 05:50] LABS: Prothrombin Time 13.5 Seconds (11.1-14.7)
[2021-05-06 05:58] LABS: Alanine Aminotransferase 82 U/L (4-35); Albumin Level 2.9 g/dL (3.5-5.1); Alkaline Phosphatase 54 U/L (38-126); Anion Gap 3 mmol/L (8-16); Aspartate Amino Transferase 45 U/L (14-36); Bilirubin,Total 0.9 mg/dL (0.2-1.3); Blood Urea Nitrogen 26 mg/dL (7-17); CRP 0.7 mg/dL (<1.0); Calcium 7.8 mg/dL (8.4-10.2); Carbon Dioxide 27 mmol/L (22-30); Chloride 106 mmol/L (98-107); Estimated CRCL calculation 108 ml/min; Estimated Glomerular Filt Rate > 60; Glucose 150 mg/dL (65-110); Lactate Dehydrogenase 1507 U/L (313-618); Phosphorus 4.3 mg/dL (2.5-4.5); Potassium 3.4 mmol/L (3.4-5.0); Sodium 136 mmol/L (137-145)
[2021-05-06 06:13] LABS: Alveolar/Arterial O2 Gradient 597.1 mmHg; Base Excess ABG -1.4 mEq/l (+/-2.0); Carboxyhemoglobin 0.3 % THb (0-2.0); Fractional Inspired Oxygen 100 %; HCO3 ABG 25.8 mEq/l (22.0-26.0); Methemoglobin ABG 0.3 %THb (0-1.5); Oxygen Content ABG 18.7 %vol (16.0-22.0); Oxygen Saturation ABG 89.8 % (95.0-100.0); Oxyhemoglobin 87.7 % THb (90.0-100.0); PCO2 ABG 52.8 mmHg (35.0-45.0); PO2 ABG 63.1 mmHg (80.0-100.0); PO2 FiO2 Ratio Arterial Blood 0.63 %; Reduced Hemoglobin 11.7 %THb (0-5.0); Total Hemoglobin 15.2 g/dL (12.0-18.0); pH ABG 7.307 (7.350-7.450)
[2021-05-06 06:14] LABS: Device VENTILATOR; Modified Allen's Test Pass; Site Drawn LEFT RADIAL
[2021-05-06 06:15] LABS: Arterial Blood Gas PEEP 15 cmH2O; Arterial Blood Gas Tidal Volume 350 ml; Arterial Blood Gas Vent Mode CMV; Arterial Blood Gas Ventilator rate 24 /MIN
[2021-05-06] MEDS: KCL 20 MEQ/SW 100 ML 100 ML 50 MEQ IVPB (08:56)
[2021-05-06] MEDS: MINERAL OIL/WHITE PETROLATUM OINTMENT 1 APPLIC EACH EYE ×2 (08:56→20:06)
[2021-05-06] MEDS: PANTOPRAZOLE SODIUM IV 40 MG VIAL IV PUSH (08:56)
[2021-05-06] MEDS: ENOXAPARIN 40 MG/0.4 ML SYRINGE SUB-Q ×2 (08:56→20:07)
[2021-05-06 08:58] LABS: Alveolar/Arterial O2 Gradient 600.1 mmHg; Base Excess ABG -1.9 mEq/l (+/-2.0); Carboxyhemoglobin 0.3 % THb (0-2.0); Fractional Inspired Oxygen 100 %; HCO3 ABG 25.3 mEq/l (22.0-26.0); Methemoglobin ABG 0.5 %THb (0-1.5); Oxygen Content ABG 18.8 %vol (16.0-22.0); Oxygen Saturation ABG 88.5 % (95.0-100.0); Oxyhemoglobin 86.5 % THb (90.0-100.0); PCO2 ABG 52.3 mmHg (35.0-45.0); PO2 ABG 60.6 mmHg (80.0-100.0); PO2 FiO2 Ratio Arterial Blood 0.61 %; Reduced Hemoglobin 12.7 %THb (0-5.0); Total Hemoglobin 15.5 g/dL (12.0-18.0); pH ABG 7.303 (7.350-7.450)
[2021-05-06 08:59] LABS: Arterial Blood Gas PEEP 15 cmH2O; Arterial Blood Gas Tidal Volume 380 ml; Arterial Blood Gas Vent Mode CMV; Arterial Blood Gas Ventilator rate 28 /MIN; Device VENTILATOR; Modified Allen's Test Unable to perform; Site Drawn LEFT RADIAL
[2021-05-06] MEDS: guaiFENesin 12 HR 600 MG TABCR PO (09:00)
--- NOTE | 2021-05-06 09:17 | PCRCNOTE ---
PT SPO2 87% PRIOR TO BREATHING TREATMENT. POST TREATMENT, SPO2 82%. DR MARTIN AT BEDSIDE, MULTIPLE CHANGES MADE TO VENTILATOR FOR OPTIMAL SPO2 WITHOUT POSITIVE RESULTS. PT BAGGED FOR ~5 MINUTES WITH NO IMPROVEMENT. PLACED BACK ON VENTILATOR WITH PREVIOUSLY ORDERED SETTINGS. ABG AND FLOLAN ORDERED.
--- NOTE | 2021-05-06 09:30 | WPDINTPN ---
Progress Note: A&P Assessment and Plan (1) Acute respiratory failure with hypoxia: Code(s): J96.01 - Acute respiratory failure with hypoxia Status: Acute Assessment and Plan: Acute hypoxic respiratory failure likely related COVID pneumonia, presented the ED on 04/25/2021 -transfer the ICU on 05/01/2021 -intubated on 05/06/2021 with worsening chest x-ray, impending respiratory failure after being on maximum support from the Airvo along with 100% non-rebreather despite which patient was desaturating. -chest x-ray shows diffuse bilateral infiltrates worse on the right side. Small pneumothorax on the right side with pneumomediastinum and subcutaneous emphysema -continue CMV mode of ventilation, low tidal volume strategy, 100% FiO2, peep of 15. -patient is being started on Flolan -continue bronchodilators -sedated with fentanyl and Versed infusion. Patient also on Nimbex for synchrony (2) Pneumonia due to COVID-19 virus: Code(s): U07.1 - COVID-19; J12.82 - Pneumonia due to coronavirus disease 2019 Status: Acute Assessment and Plan: COVID pneumonia, patient is NOT vaccinated -continue droplet, airborne, contact isolation/precautions -inflammatory markers are trending down -on 05/01/2021: The chest x-ray had worsened increased oxygen requirements and elevated CRP, I discussed discussed with patient regarding tocilizumab, to which she was agreeable and patient was given 1 does of tocilizumab on 05/01/2021 -status post 5 days of remdesivir, will give additional 5 days Remdesivir -continue dexamethasone (total of 10 days) (3) Asthma: Code(s): J45.909 - Unspecified asthma, uncomplicated Status: Acute Assessment and Plan: Continue bronchodilators and supplementary oxygen (4) Transaminitis: Code(s): R74.01 - Elevation of levels of liver transaminase levels Status: Acute Assessment and Plan: LFTs improving, bilirubin is normal -hepatitis panel is negative -right upper quadrant ultrasound: Status post cholecystectomy (5) DVT prophylaxis: Code(s): Z29.9 - Encounter for prophylactic measures, unspecified Status: Acute Assessment and Plan: Continue enoxaparin 40 mg SQ q.12 hours Additional Plan Stress ulcer prophylaxis: Protonix Nutrition: NPO Will discuss with family Code status: Full code Critical care time spent: 38 minutes This dictation may have been done utilizing a voice recognition system. Attempts have been made to correct errors. However, there may be uncorrected grammatical, spelling, and recognition errors present. Due to a high probability of clinically significant, life threatening deterioration, the patient required my highest level of preparedness to intervene emergently and I personally spent this critical care time directly and personally managing the patient. This critical care time included obtaining a history; examining the patient; pulse oximetry; ordering and review of studies; arranging urgent treatment with development of a management plan; evaluation of patient's response to treatment; frequent reassessment; and discussions with other providers. It was exclusive of separately billable procedures and treating other patients and teaching time. Please see Assessment and Plan section and the rest of the note for further information on patient assessment and treatment Subjective Date/time seen: 05/06/21 09:30 Interval history: Reason for consult: Acute hypoxic respiratory failure with increased oxygen requirements, COVID pneumonia, hypokalemia, elevated LFTs -Tocilizumab received on 05/01/2021 05/06/2021: Patient developed hypoxia overnight, was maximum support from Airvo, high-flow therapy and non-rebreather in place. Patient was in impending respiratory failure and was intubated early this morning. Patient is on 15 of PEEP 100% FiO2, O2 sats were in the mid to upper 80s. Received a call early this morning and asked the b
--- NOTE | 2021-05-06 09:34 | PM.IMPN ---
Progress Note: A&P Assessment and Plan (1) Acute respiratory failure with hypoxia: Code(s): J96.01 - Acute respiratory failure with hypoxia Status: Acute Assessment and Plan: Acute hypoxic respiratory failure related COVID pneumonia -patient moved to ICU 8/5 PM -She remained on high-flow therapy Airvo but with worsening O2 requirement; Patient intubated 8 AM -patient now sedated and paralyzed; Flolan started -chest x-ray shows small right apical PTX, diffuse lung disease with worsening on the right and pneumomediastinum. -plan for intermittent prone positioning -continue bronchodilators (2) Pneumothorax: Code(s): J93.9 - Pneumothorax, unspecified Status: Acute Assessment and Plan: Patient has developed a small right pneumothorax and pneumomediastinum as complications from COVID-19. Continue supportive care. Serial checks x-rays ensure this does not worsen. Wean mechanical ventilation as tolerated. (3) Pneumonia due to COVID-19 virus: Code(s): U07.1 - COVID-19; J12.82 - Pneumonia due to coronavirus disease 2018 Status: Acute Assessment and Plan: COVID pneumonia, patient was NOT vaccinated. -continue droplet, airborne, contact isolation/precautions -inflammatory markers were elevated. Some are improving; some are worsening. Continue to follow intermittently -patient was agreeable for tocilizumab and this was given 05/01/21; watch for evidence of 2nd bacterial infection -she finished Remdesivir (05/03/21) but resumed 05/05 for 5 more days; Continue dexamethasone (total of 10 days) -wean MV as tolerated (4) Asthma: Code(s): J45.909 - Unspecified asthma, uncomplicated Status: Acute Assessment and Plan: As above. (5) Transaminitis: Code(s): R74.01 - Elevation of levels of liver transaminase levels Status: Acute Assessment and Plan: Elevated AST/ALT. AST and ALT still trending down. RUQ normal. Hepatitis panel negative. Follow periodically (6) Essential hypertension: Code(s): I10 - Essential (primary) hypertension Status: Acute Assessment and Plan: Patient has chronic HTN on Enalapril and Norvasc at home. Norvasc was resumed 05/04. BP soft this morning due to above. AntiHTN medications now on hold. Follow. (7) DVT prophylaxis: Code(s): Z29.9 - Encounter for prophylactic measures, unspecified Status: Acute Assessment and Plan: Sheryl Subjective Date/time seen: 05/06/21 09:34 Interval history: 71 year old female with a history of asthma and hypertension who is seen in follow up for acute respiratory failure from COVID-19. More hypoxic overnight requiring intubation early this morning. CXR showing small PTX and pneumomediastinum now. Patient remaining hypoxic so patient paralyzed and Flolan started this morning. Patient intubated and sedated thus unable to provide history. Review of Systems Review of Systems: ROS unobtainable: Yes unobtainable due to endotracheal tube Exam Narrative: AF 97.7 107/65 89 24 89% MV Gen - intubated, sedated and paralyzed lying prone in bed HEENT - ETT secured. OG in place to suction with brownish fluid in tubing. Chest - distant BS and mildly coarse. CV - RRR S1/S2; Tele showing no significant dysrhythmias Abd - Soft -Shaw secured draining clear yellow urine. Ext - No pedal edema Neuro - sedated, paralyzed Skin - cool and dry Objective Data Vital Signs Vital Signs: Vital Signs - 24 hr 05/05/21 10:00 05/05/21 12:00 05/05/21 13:54 Temperature 98.5 F Pulse Rate 95 90 93 Respiratory Rate 14 17 21 H Blood Pressure 135/85 134/81 Pulse Oximetry 91 97 93 05/05/21 14:00 05/05/21 16:00 05/05/21 18:00 Temperature 98.3 F Pulse Rate 99 94 92 Respiratory Rate 20 16 19 Blood Pressure 141/88 H 151/99 H 148/96 H Pulse Oximetry 92 96 92 05/05/21 20:00 05/05/21 20:55 05/05/21 21:47 Temperature 97 F L Puls
[2021-05-06] MEDS: EPOPROSTENOL SODIUM 0.5 MG VIAL 1 MG INHALATION ×3 (09:35→21:15)
[2021-05-06] MEDS: REMDESIVIR 100 MG/NS 250 ML 100 MG/250 ML BAG 250 MG IVPB (11:01)
--- NOTE | 2021-05-06 12:17 | PCDIET ---
MD planning to hold tube feedings today. If tube feedings would initiate later today, suggest Vital 1.2 at 50mL/hr goal rate for 1320kcal and 82 protein.
[2021-05-06 15:04] LABS: Glucose Point of Care 203 mg/dl (65-105)
--- NOTE | 2021-05-06 19:53 | PC.NURSE ---
Spoke with Dr. Apotne regarding current vital signs. Do not un-prone patient. Keep patient in prone position until morning.
--- NOTE | 2021-05-06 21:25 | PC.NURSE ---
Dr. Aponte notified of continued trend of decreased O2 sat despite being proned on nimbex. Increase PEEP to 17 and get stat chest xray. Call with results.
--- NOTE | 2021-05-06 22:14 | PC.NURSE ---
Updated Dr. simon regarding chest xray results. Un prone patient. Update family on poor prognosis.
--- NOTE | 2021-05-06 22:32 | PC.NURSE ---
Froylan and Daughter Jorge updated on poor prognosis. Patient remains full code at this time.
--- NOTE | 2021-05-06 22:59 | PC.NURSE ---
Dr. Aponte updated regarding current vital signs post un proning. No further orders at this time. Family is aware of poor prognosis.
[2021-05-06] MEDS: CISATRACURIUM BESYLATE 200 MG in DEXTROSE 5% 80 ML 11.75 ML IV CONT (23:52)
[2021-05-07] VITALS (68 sets, daily range): BP systolic 43–112; BP diastolic 21–86; PULSE 62–114; RESP 24–28; TEMP 36.1–38.8; O2SAT 70–84
[2021-05-07] MEDS: NOREPINEPHRINE 8 MG/D5W 250 ML 8 MG/250 ML BAG 9.38 MG IV CONT (00:37)
[2021-05-07] MEDS: MIDAZOLAM 100MG/NS 100ML(*CRX) 100 MG/100 ML BAG 6 MG IV CONT ×2 (00:40→05:09)
[2021-05-07] MEDS: EPOPROSTENOL SODIUM 0.5 MG VIAL 1 MG INHALATION ×6 (01:04→19:22)
[2021-05-07 03:41] LABS: Hematocrit 49.8 % (37.0-47.0); Hemoglobin 15.4 g/dL (12.0-15.0); Mean Corpuscular HGB Conc 30.9 g/dl (32-36); Mean Corpuscular Volume 93.8 fl (80-100); Mean Platelet Volume 9.1 fl (7.4-10.4); Platelet Count Result 351 k/mm3 (150-375); Red Blood Count 5.31 M/mm3 (4.2-5.4); Red Cell Distribution Width 14.1 % (11.5-14.5); White Blood Count 10.2 K/mm3 (4.5-10.0)
[2021-05-07 03:53] LABS: Prothrombin Time 13.5 Seconds (11.1-14.7)
[2021-05-07 04:15] LABS: Alanine Aminotransferase 87 U/L (4-35); Albumin Level 3.1 g/dL (3.5-5.1); Alkaline Phosphatase 55 U/L (38-126); Anion Gap 9 mmol/L (8-16); Aspartate Amino Transferase 46 U/L (14-36); Bilirubin,Total 0.5 mg/dL (0.2-1.3); Blood Urea Nitrogen 38 mg/dL (7-17); Calcium 8.2 mg/dL (8.4-10.2); Carbon Dioxide 24 mmol/L (22-30); Chloride 101 mmol/L (98-107); Estimated CRCL calculation 52 ml/min; Estimated Glomerular Filt Rate 49; Glucose 151 mg/dL (65-110); Magnesium 2.3 mg/dL (1.6-2.3); Potassium 5.3 mmol/L (3.4-5.0); Sodium 134 mmol/L (137-145)
[2021-05-07] MEDS: FENTANYL 2,500MCG/NS250ML(*CRX 2,500 MCG/250 ML BAG 20 MCG IV CONT (05:08)
[2021-05-07] MEDS: CENTRAL LINE FLUSH 10 ML IV PUSH ×2 (05:09→19:39)
--- NOTE | 2021-05-07 05:49 | PC.NURSE ---
Dr. Aponte updated on patient condition including subcutaneous air and vital signs.
[2021-05-07] MEDS: ENOXAPARIN 40 MG/0.4 ML SYRINGE SUB-Q ×2 (07:29→20:29)
[2021-05-07] MEDS: PANTOPRAZOLE SODIUM IV 40 MG VIAL IV PUSH (07:30)
[2021-05-07] MEDS: MINERAL OIL/WHITE PETROLATUM OINTMENT 1 APPLIC EACH EYE ×2 (07:31→19:39)
[2021-05-07] MEDS: CISATRACURIUM BESYLATE 200 MG in DEXTROSE 5% 80 ML 10.28 ML IV CONT (08:58)
[2021-05-07] MEDS: REMDESIVIR 100 MG/NS 250 ML 100 MG/250 ML BAG 250 MG IVPB (10:37)
[2021-05-07] MEDS: NOREPINEPHRINE 8 MG/D5W 250 ML 8 MG/250 ML BAG 56.25 MG IV CONT ×3 (11:10→21:10)
--- NOTE | 2021-05-07 12:35 | PCDIET ---
Nutrition Follow-Up Complete: Nutrition Diagnosis: Inadequate oral intake related to oral intubation as evidenced by NPO status. Nutrition Goal: Patient to meet estimated nutritional needs. Goal not met. Patient remains NPO and prognosis poor, per nursing. Will follow closely and provide recommendations for tube feeding if/when medically appropriate. Last recorded weight is 95.1 kg which is stable with last review. Bowel Motility: No documented BM. Labs Reviewed: WBC (10.2), Hgb (15.4), Hct (49.8), Glu (151), BUN (38), Cr (1.1), K (5.3), Alb (3.1), Conner Ca (8.92) Meds Noted: Norvasc, Fentanyl, Remdesivir, Apresoline, Nimbex, Versed, Decadron, Protonix, Levophed Additional Notes: No documented skin breakdown. Will continue to monitor with same goal. Nutrition Monitoring and Evaluation: Follow up every 3 days.
--- NOTE | 2021-05-07 13:27 | WPDINTPN ---
Progress Note: A&P Assessment and Plan (1) Acute respiratory failure with hypoxia: Code(s): J96.01 - Acute respiratory failure with hypoxia Status: Acute Assessment and Plan: Acute hypoxic respiratory failure likely related COVID pneumonia, presented the ED on 04/25/2021 -transfer the ICU on 05/01/2021 -intubated on 05/06/2021 with worsening chest x-ray, impending respiratory failure after being on maximum support from the Airvo along with 100% non-rebreather despite which patient was desaturating. -05/07/2021: Chest x-ray shows 1. Stable airspace opacities of the right mid and lower lung zone and worsening opacities of the left mid and lower lung zones, consistent with pneumonia.2. Widespread subcutaneous emphysema with improvement in the right lateral chest wall and worsening over the left thorax.3. Minute right apical pneumothorax, pneumomediastinum, and pneumopericardium, unchanged. -continue CMV mode of ventilation, low tidal volume strategy, 100% FiO2, peep of 17. O2 sats have been her wearing the low 70s. Patient with severe subcutaneous emphysema along with pneumomediastinum and pneumopericardium, decrease her PEEP to 12 with slight improvement in oxygenation but still remains in the 70s. -continue Flolan -continue bronchodilators -sedated with fentanyl and Versed infusion. Patient also on Nimbex for synchrony -discussed extensively with the and daughter in the conference room, updated them with patient's condition and plan of care. They have made her do not resuscitate but want to continue for another 24 hours before in her comfort measures (2) Pneumonia due to COVID-19 virus: Code(s): U07.1 - COVID-19; J12.82 - Pneumonia due to coronavirus disease 2019 Status: Acute Assessment and Plan: COVID pneumonia, patient is NOT vaccinated -continue droplet, airborne, contact isolation/precautions -inflammatory markers are trending down -on 05/01/2021: The chest x-ray had worsened increased oxygen requirements and elevated CRP, I discussed discussed with patient regarding tocilizumab, to which she was agreeable and patient was given 1 does of tocilizumab on 05/01/2021 -status post 5 days of remdesivir, will give additional 5 days Remdesivir -continue dexamethasone (total of 10 days) (3) Asthma: Code(s): J45.909 - Unspecified asthma, uncomplicated Status: Acute Assessment and Plan: Continue bronchodilators and supplementary oxygen (4) Transaminitis: Code(s): R74.01 - Elevation of levels of liver transaminase levels Status: Acute Assessment and Plan: LFTs improving, bilirubin is normal -hepatitis panel is negative -right upper quadrant ultrasound: Status post cholecystectomy (5) DVT prophylaxis: Code(s): Z29.9 - Encounter for prophylactic measures, unspecified Status: Acute Assessment and Plan: Continue enoxaparin 40 mg SQ q.12 hours Additional Plan Stress ulcer prophylaxis: Protonix Nutrition: NPO Discussed with , Froylan and daughter Laya, updated them with patient's condition plan of care. I also discussed with them regarding her oxygen levels being significantly low really not compatible with life. Froylan requested that patient be made a do not resuscitate. The family wants to go give her another 24 hours before making her comfort measures with withdrawal of support Code status: Do not resuscitate Critical care time spent: 38 minutes This dictation may have been done utilizing a voice recognition system. Attempts have been made to correct errors. However, there may be uncorrected grammatical, spelling, and recognition errors present. Due to a high probability of clinically significant, life threatening deterioration, the patient required my highest level of preparedness to intervene emergently and I personally spent this critical care time directly and personally managing the patient. This critical care time included ob
[2021-05-07] MEDS: VASOPRESSIN INJ 100 UNITS in DEXTROSE 5% 95 ML IV CONT (15:10)
[2021-05-07] MEDS: FENTANYL 2,500MCG/NS250ML(*CRX 2,500 MCG/250 ML BAG 17.5 MCG IV CONT (18:14)
--- NOTE | 2021-05-07 19:00 | PM.IMPN ---
Progress Note: A&P Assessment and Plan (1) Acute respiratory failure with hypoxia: Code(s): J96.01 - Acute respiratory failure with hypoxia Status: Acute Assessment and Plan: Acute hypoxic respiratory failure related COVID pneumonia -patient moved to ICU 8/5 PM -She remained on high-flow therapy Airvo but with worsening O2 requirement; Patient intubated 8 AM -patient now sedated and paralyzed; Flolan started -chest x-ray shows small right apical PTX, diffuse lung disease with worsening on the right and pneumomediastinum. -plan for intermittent prone positioning -continue bronchodilators - Poor prognosis (2) Shock: Code(s): R57.9 - Shock, unspecified Status: Acute Assessment and Plan: Patient developed persistent HoTN and pressors added. Currently on Levophed, DETECTIVE and phenylephrine. BP still poor. Family aware and patietn now DNR. technician terminal and repeater outcome poor. (3) Pneumothorax: Code(s): J93.9 - Pneumothorax, unspecified Status: Acute Assessment and Plan: Patient has developed a small right pneumothorax and pneumomediastinum with SQ emphysema as complications from COVID-19. Continue supportive care. Serial checks x-rays ensure this does not worsen. Wean mechanical ventilation as tolerated. (4) Pneumonia due to COVID-19 virus: Code(s): U07.1 - COVID-19; J12.82 - Pneumonia due to coronavirus disease 2019 Status: Acute Assessment and Plan: COVID pneumonia, patient was NOT vaccinated. -continue droplet, airborne, contact isolation/precautions -inflammatory markers were elevated. Some are improving; some are worsening. Continue to follow intermittently -patient was agreeable for tocilizumab and this was given 05/01/21; watch for evidence of 2nd bacterial infection -she finished Remdesivir (05/03/21) but resumed 05/05 for 5 more days; Continue dexamethasone (total of 10 days) -wean MV as tolerated (5) Asthma: Code(s): J45.909 - Unspecified asthma, uncomplicated Status: Acute Assessment and Plan: As above. (6) Transaminitis: Code(s): R74.01 - Elevation of levels of liver transaminase levels Status: Acute Assessment and Plan: Elevated AST/ALT. AST and ALT about the same. RUQ normal. Hepatitis panel negative. Follow periodically (7) Essential hypertension: Code(s): I10 - Essential (primary) hypertension Status: Acute Assessment and Plan: Patient has chronic HTN on Enalapril and Norvasc at home. Anti-HTN meds on hold. (8) DVT prophylaxis: Code(s): Z29.9 - Encounter for prophylactic measures, unspecified Status: Acute Assessment and Plan: Lovenox Subjective Date/time seen: 05/07/21 19:00 Interval history: 71 year old female with a history of asthma and hypertension who is seen in follow up for acute respiratory failure from COVID-19. More hypoxic and hypotensive. On maximal therapy but not responding. Family meeting and patietn now a DNR adn comfort measures being discussed. Exam Narrative: [id number] 86/34 114 24 74% MV Gen - intubated, sedated and paralyzed lying in bed HEENT - ETT secured. OG in place to suction with brownish fluid in tubing. Marked facial SQ emphysema Chest - very distant BS. CV - RRR S1/S2 Abd - Soft -Shaw secured draining clear yellow urine. Ext - No pedal edema Neuro - sedated, paralyzed Skin - cool and dry Objective Data Vital Signs Vital Signs: Vital Signs - 24 hr 05/06/21 19:34 05/06/21 20:00 05/06/21 20:01 Temperature 98.4 F Pulse Rate 102 H 104 H 103 H Respiratory Rate 24 H 24 H 24 H Blood Pressure 135/72 135/72 Pulse Oximetry 88 L 89 L 05/06/21 21:00 05/06/21 21:38 05/06/21 22:00 Temperature Pulse Rate 160 H 107 H 108 H Respiratory Rate 24 H 24 H 24 H Blood Pressure 123/67 125/69 Pulse Oximetry 86 L 81 L 81 L 05/06/21 22:33 05/06/21 22:55 05/06/21 23:01 Temperature Pulse Rate
[2021-05-07] MEDS: CISATRACURIUM BESYLATE 200 MG in DEXTROSE 5% 80 ML 8.81 ML IV CONT (19:59)
[2021-05-07] MEDS: guaiFENesin 12 HR 600 MG TABCR PO (20:29)
[2021-05-08] VITALS: PULSE 0
--- NOTE | 2021-05-08 02:27 | PC.NURSE ---
Patient at [id number]. , Froylan, notified.
--- NOTE | 2021-05-08 07:28 | P.DN_ITS ---
Discharge Sum: Prov Provider Primary care physician: UNKNOWN,DOCTOR Admitting provider: Kristel Ricardo MD Consults: 05/01/21 Consult to Physician Routine Comment: Consulting Provider: Oly Aponte Reason for consultation: Covid pneumonia Has provider been notified: Yes Discharge Sum: Diag PCOD COVID-19 Pneumonia Contributing Factors (1) Acute respiratory failure with hypoxia: (2) Shock: (3) Pneumothorax: (4) Pneumonia due to COVID-19 virus: (5) Asthma: (6) Transaminitis: (7) Essential hypertension: (8) DVT prophylaxis: Discharge Sum: Summary Date and Time Date of admission: 04/29/21 13:15 Date of : 05/07/21 Time of : 23:55 Summary Details: Patient was positive for COVID on 04/21/21 and presented to the hospital a few days later after being found to be hypoxic. Patient was found to be in acute respiratory failure with hypoxia. Patient was started on supplemental oxygen. She was started on remdesivir and dexamethasone. Inflammatory markers were elevated. Patient was agreeable for tocilizumab and this was given as well. Unfortunately, her O2 requirement continued to climb. She was moved to the ICU and ultimately intubated, sedated and paralyzed. Flolan started. Recent chest x-ray showing right apical pneumothorax and pneumomediastinum. She developed shock requiring 3 pressors. Despite maximal therapy, patient's condition continued to deteriorate. Family was made aware. Patient was made D NR. Patient late evening hours of May 07. Additional Data Attending physician: Kristel Ricardo MD Hospice patient?: No
== END 2021-05-07 23:55 | disposition expired | DRG 208 ==
LOC: ANHED 12:44 → ANH3MEDSUR 04-30 08:09 → ANHICU 05-11 17:04
PROVIDERS: Internal Medicine; Physician Assistant; Admitting Provider Family Medicine; Emergency Provider General Practice; Visit Provider Internal Medicine
DX: U07.1 COVID-19 (principal); J12.82 Pneumonia due to coronavirus disease 2019; J96.01 Acute respiratory failure with hypoxia; J93.83 Other pneumothorax; R57.8 Other shock; J98.2 Interstitial emphysema; I10 Essential (primary) hypertension; J45.909 Unspecified asthma, uncomplicated; M19.90 Unspecified osteoarthritis, unspecified site; K44.9 Diaphragmatic hernia without obstruction or gangrene; L40.9 Psoriasis, unspecified; E87.6 Hypokalemia; E66.9 Obesity, unspecified; Z68.31 Body mass index [BMI] 31.0-31.9, adult; Z90.49 Acquired absence of other specified parts of digestive tract; Z87.891 Personal history of nicotine dependence; Z87.442 Personal history of urinary calculi; Z66 Do not resuscitate
CPT/HCPCS: 31500; 36415; 36569; 36600; 71045; 71275; 76705; 80053; 80074; 82375; 82565; 82728; 82805; 82948; 83050; 83605; 83615; 83735; 84100; 84145; 84460; 84484; 85025; 85027; 85380; 85610; 85730; 86140; 87086; 93005; 93306; 94002; 94003; 94640; 94667; 96365; 96367; 96375; 99285; A9270; C1751; C9113; J0131; J0330; J0360; J1100; J1650; J1940; J2250; J2370; J3010; J3262; J3480; J7030; J7060; Q9967